=== PATIENT | female | born 1965 | race Two or more races ===

== ENCOUNTER 2020-12-20 00:46 | Inpatient (IN) | payer MEDICAID ==
[2020-12-20] VITALS (11 sets, daily range): BP systolic 93–134; BP diastolic 53–96
[~2020-12-20] VITALS: Ht 165.1 cm; Wt 104.3 kg
--- NOTE | 2020-12-20 01:00 | NUR ---
ED Nurse Note: Patient brought in from assisted living complaints of nosebleed and vomiting blood, bright red blood visualized copius amounts, pt has hx of bilateral cellulitis on lower limbs, increased temperature at 100.9 all other vitals are stable.
--- NOTE | 2020-12-20 01:40 | NUR ---
ED Nurse Note: Blood specimen drawn and sent to lab
[2020-12-20 01:45] LABS: BASOPHILS % (AUTO) 4.3 % (0.0-2.0); EOSINOPHILS % (AUTO) 3.9 % (0.0-3.0); HEMATOCRIT 29.7 % (37.0-47.0); HEMOGLOBIN 8.5 G/DL (12.0-16.0); LYMPHOCYTES % (AUTO) 22.3 % (20.0-45.0); MEAN CORPUSCULAR VOLUME 86 FL (80-99); MONOCYTES % (AUTO) 15.2 % (1.0-10.0); NEUTROPHILS % (AUTO) 54.4 % (45.0-75.0); PLATELET COUNT 408 K/UL (150-450); RED BLOOD COUNT 3.47 M/UL (4.20-5.40); RED CELL DISTRIBUTION WIDTH 22.6 % (11.6-14.8); WHITE BLOOD COUNT 4.9 K/UL (4.8-10.8)
--- NOTE | 2020-12-20 01:46 | Emergency Room Report ---
History of Present Illness General Chief Complaint: Nosebleed Source: EMS Present Illness HPI 55-year-old female here with nosebleed. Patient has a history of DVT and is on Lovenox at a snf. She said that she is in a snf temporarily to treat her cellulitis. Said that earlier tonight she began to experience a severe left-sided nosebleed that "soaked up my whole bed" and then she began vomiting blood. She said that she vomited about a "sodas can worth" of blood. Says that she has been swallowing the blood all night. At this time denies headache, vision changes, focal numbness or weakness, lightheadedness, syncope, presyncope, chest pain, palpitation of shortness of breath, back pain, abdominal pain, nausea, vomiting, diarrhea, dysuria, melena. 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 COVID-19 Screening: Positive COVID-19 COVID-19 Testing Source: unknown Patient History Now: No Nursing Documentation-[facility] Past Medical History: No History, Except For Hx Hypertension: Yes Review of Systems All Other Systems: negative except mentioned in HPI Physical Exam Vital Signs Date Time Temp Pulse Resp B/P (MAP) Pulse Ox O2 Delivery O2 Flow Rate FiO2 12/20/20 00:49 100.9 130 18 93/53 (66) 96 Room Air Sp02 EP Interpretation: reviewed, normal General Appearance: no apparent distress, alert, GCS 15, non-toxic Head: normocephalic, atraumatic Eyes: bilateral eye normal inspection, bilateral eye PERRL ENT: hearing grossly normal, normal pharynx, no angioedema, normal voice, other - Severe active left-sided nosebleed. Large amount of active bleeding from the left naris. Unable to visualize site of bleeding. Blood visible in the posterior oropharynx Neck: full range of motion, supple/symm/no masses Respiratory: chest non-tender, lungs clear, normal breath sounds, speaking full sentences Cardiovascular #1: regular rate, rhythm, no edema Cardiovascular #2: 2+ carotid (R), 2+ carotid (L), 2+ radial (R), 2+ radial (L), 2+ dorsalis pedis (R), 2+ dorsalis pedis (L) Gastrointestinal: normal bowel sounds, non tender, soft, non-distended, no guarding, no rebound Rectal: deferred Genitourinary: normal inspection, no CVA tenderness Musculoskeletal: back normal, normal range of motion, gait/station normal, non- tender Neurologic: alert, motor strength/tone normal, oriented x3, sensory intact, responsive, speech normal Psychiatric: judgement/insight normal, memory normal, mood/affect normal, no suicidal/homicidal ideation Lymphatic: no adenopathy Medical Decision Making Diagnostic Impression: Primary Impression: Severe epistaxis Additional Impressions: Posterior epistaxis Anemia ER Course 55-year-old female here with severe left-sided epistaxis. Large amount of active left-sided bleeding. I was unable to visualize the site of bleeding however there was a large amount of blood in the posterior oropharynx and the patient was actively swallowing blood. Suspected posterior nosebleed. Left naris was packed with a 9 cm posterior rapid Rhino and 5 cc of air was inflated in the posterior and anterior chambers. Patient was observed and the bleeding appears to have subsided. I spoke with the patient's primary care provider who agreed the patient needed to be transferred to a facility that has ENT coverage. Update 0300: I spoke with ENT at [facility] Dr. Martini. We discussed the case and they said that the patient likely will need observation and no need for an ENT consultation at this time. He said transfer for ENT coverage would be inappropriate and refused to accept the patient for transfer. He said the patient would be suitable for outpatient follow-up with ENT, however I told him that the patient had extremely brisk bleeding coming from the left nares and also had a right sided epistaxis as well and this was highly concerning for posterior epistaxis. I told him that the patient had a significant drop in her hemoglobin and has remained tachycardic in the emergency department and will require admission for observation. He said despite this the patient would still be unacceptable for transfer at this time. We discussed this with the accepting physician Dr. Willis who accepted the patient for admission. Patient has remained hemodynamically stable and neurovascular intact in the emergency department. She has remained tachycardic at around 115 bpm. Was given 1 L of IV normal saline. Blood pressure has remained normal and she is awake and alert with no complaints at this time. Awaiting admission to telemetry. Last Vital Signs Date Time Temp Pulse Resp B/P (MAP) Pulse Ox O2 Delivery O2 Flow Rate FiO2 12/20/20 00:49 100.9 130 18 93/53 (66) 96 Room Air Referrals: [facility], [place],REFERRING (PCP) Shaheen Gutierres M.D. Dec 20, 2020 01:46
[2020-12-20 01:48] LABS: ANION GAP 6 mmol/L (5-15); BLOOD UREA NITROGEN 14 mg/dL (7-18); CALCIUM 8.2 MG/DL (8.5-10.1); CARBON DIOXIDE 26 MMOL/L (21-32); CHLORIDE 108 MMOL/L (98-107); CREATININE 0.9 MG/DL (0.55-1.30); POTASSIUM 4.2 MMOL/L (3.5-5.1); SODIUM 140 MMOL/L (136-145)
[2020-12-20 01:53] LABS: ALANINE AMINOTRANSFERASE 7 U/L (12-78); ALBUMIN 1.7 G/DL (3.4-5.0); ALBUMIN/GLOBULIN RATIO 0.4 (1.0-2.7); ALKALINE PHOSPHATASE 73 U/L (46-116); ASPARTATE AMINO TRANSFERASE 20 U/L (15-37); BILIRUBIN,TOTAL 0.2 MG/DL (0.2-1.0)
--- NOTE | 2020-12-20 03:30 | NUR ---
ED Nurse Note: Blood specimen sent to lab
[2020-12-20 03:52] LABS: INR 1.2 (0.9-1.1)
--- NOTE | 2020-12-20 07:30 | NUR ---
patient is awake alert oriented repeat cbc done no bleeding noted
[2020-12-20 08:32] LABS: HEMATOCRIT 27.2 % (37.0-47.0); MEAN CORPUSCULAR VOLUME 85 FL (80-99); PLATELET COUNT 389 K/UL (150-450); RED BLOOD COUNT 3.19 M/UL (4.20-5.40); RED CELL DISTRIBUTION WIDTH 22.1 % (11.6-14.8); WHITE BLOOD COUNT 4.2 K/UL (4.8-10.8)
[2020-12-20] MEDS ORDERED: Omnipaque-300 100ml vial INJ PRN (09:30)
--- NOTE | 2020-12-20 10:56 | Diagnostic Imaging Report ---
EXAM: CT Abdomen and Pelvis With Intravenous Contrast CLINICAL HISTORY: BLD, vomiting blood, bright red blood visualized copious amounts, pt has hx of bilateral cellulitis on lower limbs, increased temperature at 100.9 all TECHNIQUE: Axial computed tomography images of the abdomen and pelvis with intravenous contrast. CTDI is 14.4 mGy and DLP is 768.1 mGy-cm. One or more of the following dose reduction techniques were used: automated exposure control, adjustment of the mA and/or kV according to patient size, use of iterative reconstruction technique. COMPARISON: No relevant prior studies available. FINDINGS: Lung bases: Atelectasis/scarring at the lung bases. No pleural effusion. Heart: Cardiomegaly. ABDOMEN: Liver: Hepatic steatosis. Low-attenuation lesion adjacent to the falciform ligament may represent focal fatty infiltration versus cystic change. Scattered additional hepatic cysts are demonstrated measuring up to 1.5 cm in segment 7. Gallbladder and bile ducts: Hydropic gallbladder measuring up to 5.4 cm. No calcified stones. No ductal dilation. Pancreas: Unremarkable. No mass. No ductal dilation. Spleen: Unremarkable. No splenomegaly. Adrenals: Unremarkable. No mass. Kidneys and ureters: The kidneys symmetrically enhance. No hydronephrosis. Stomach and bowel: The stomach is contracted. No definite CT evidence of upper gastrointestinal hemorrhage. Mild-moderate fecal retention, correlate for constipation. No small bowel obstruction. No diverticulitis. PELVIS: Appendix: Normal appendix is visualized. Bladder: Decompressed urinary bladder. Reproductive: Normal CT appearance of the uterus. ABDOMEN and PELVIS: Intraperitoneal space: Unremarkable. No free air. No significant fluid collection. Bones/joints: Degenerative change of the spine with grade 1 anterolisthesis of L4 on L5. Severe degenerative changes/resorption of the right femoral head. Suspect right hip joint effusion. Correlate with MRI if this is not a known finding. No acute fracture. No dislocation. Soft tissues: Unremarkable. Vasculature: Non-aneurysmal abdominal aorta. Lymph nodes: Bilateral inguinal adenopathy likely secondary to history of lower extremity cellulitis. IMPRESSION: 1. No definite CT evidence of upper gastrointestinal hemorrhage. Contracted stomach and its evaluation. Consider upper GI endoscopy. 2. Hepatic steatosis. Low-attenuation lesion adjacent to the falciform ligament may represent focal fatty infiltration versus cystic change. Scattered additional hepatic cysts are demonstrated measuring up to 1.5 cm in segment 7. Hydropic gallbladder measuring up to 5.4 cm. 3. Mild-moderate fecal retention, correlate for constipation. No small bowel obstruction. No diverticulitis. 4. Severe degenerative changes/resorption of the right femoral head. Suspect right hip joint effusion. Correlate with MRI if this is not a known finding. 5. Bilateral inguinal adenopathy likely secondary to history of lower extremity cellulitis.
--- NOTE | 2020-12-20 11:21 | NUR ---
DR LEW has been called to come anfd evaluate the patient
--- NOTE | 2020-12-20 11:30 | NUR ---
Pt eating at this time. tolerating. pt stable at this time
--- NOTE | 2020-12-20 13:00 | NUR ---
dr peterson at bedside evaluating the patiend orderd repeat cbc
[2020-12-20 13:28] LABS: HEMATOCRIT 24.4 % (37.0-47.0); HEMOGLOBIN 7.1 G/DL (12.0-16.0); MEAN CORPUSCULAR VOLUME 85 FL (80-99); PLATELET COUNT 247 K/UL (150-450); RED BLOOD COUNT 2.87 M/UL (4.20-5.40); RED CELL DISTRIBUTION WIDTH 22.2 % (11.6-14.8); WHITE BLOOD COUNT 2.8 K/UL (4.8-10.8)
--- NOTE | 2020-12-20 13:35 | Consultation ---
History of Present Illness General Date patient seen: Dec 20, 2020 Reason for Hospitalization: Nosebleed Present Illness HPI 55-year-old female multimedical comorbidities currently under care identified to have left epistaxis states she is doing a Lovenox recently. Rhino Rocket placed surgery called to evaluate assist with care patient seen in emergency room patient evaluated chart reviewed. Rhino rocket evaluated and repositioned hemostasis obtained Allergies: Coded Allergies: ERYTHROMYCIN BASE (Verified Allergy, Unknown, 12/20/20) LATEX, NATURAL RUBBER (Verified Allergy, Unknown, 12/20/20) COVID-19 Screening Contact w/high risk pt: Yes Experienced COVID-19 symptoms?: Yes Coronavirus symptoms experienc: Fever (T>100.4F or >38C), Cough Medication History Unable to Obtain Active Prescriptions or Reported Meds Patient History History Provided By: Patient, Medical Record, PMD Healthcare decision maker Resuscitation status Advanced Directive on File Past Medical/Surgical History Past Medical/Surgical History: (1) Anemia (2) Posterior epistaxis (3) Severe epistaxis Review of Systems Review of Symptoms General ROS: no weight loss or fever Psychological ROS: no depression or mood changes, no memory loss Ophthalmic ROS: no visual changes or eye irritation ENT ROS: no nasal congestion, hearing loss, dizziness Allergy and Immunology ROS: no allergic symptoms or urticaria Hematological and Lymphatic ROS: no swollen glands, unusual bleeding or bruising Endocrine ROS: no polyuria, polydipsia, weight changes, temperature intolerance Respiratory ROS: no cough, shortness of breath, or wheezing Cardiovascular ROS: no chest pain or dyspnea on exertion Gastrointestinal ROS: denies abdominal pain, bright red blood in stool. Musculoskeletal ROS: no myalgias or arthralgias Neurological ROS: no TIA or stroke symptoms Dermatological ROS: no new or changing skin lesions, rashes or pruritis Physical Exam Physical Exam General appearance: alert, cooperative, no distress, appears stated age Head: Normocephalic, without obvious abnormality, atraumatic left upper taxis noted Rhino Rocket in place hemostasis obtained Eyes: conjunctivae/corneas clear. PERRL, EOM's intact. Fundi benign Throat: Lips, mucosa, and tongue normal. Teeth and gums normal Neck: supple, symmetrical, trachea midline, no adenopathy, thyroid: not enlarged, symmetric, no tenderness/mass/nodules, no carotid bruit and no JVD Lungs: clear to auscultation bilaterally Heart: regular rate and rhythm, S1, S2 normal, no murmur, click, rub or gallop Abdomen: soft, non-tender. Bowel sounds normal. No masses, no organomegaly Extremities: extremities normal, atraumatic, no cyanosis or edema Pulses: 2+ and symmetric Skin: Skin color, texture, turgor normal. No rashes or lesions Neurologic: Grossly normal Last 24 Hour Vital Signs Date Time Temp Pulse Resp B/P (MAP) Pulse Ox O2 Delivery O2 Flow Rate FiO2 12/20/20 12:30 120 16 107/70 100 Room Air 12/20/20 11:15 130 16 117/64 100 Room Air 12/20/20 10:35 117 15 110/64 100 12/20/20 08:40 116 16 129/96 100 Room Air 12/20/20 07:30 98.0 119 17 134/74 100 Room Air 12/20/20 05:20 99.0 112 20 125/76 100 Room Air 12/20/20 03:54 98.9 110 20 128/77 100 Room Air 12/20/20 01:45 98.9 18 93/53 96 Room Air 12/20/20 00:49 100.9 130 18 93/53 (66) 96 Room Air Intake and Output 12/19/20 12/20/20 19:00 07:00 Intake Total 0 ml Balance 0 ml Intake Oral 0 ml Laboratory Tests Test 12/20/20 01:26 12/20/20 03:30 12/20/20 07:43 12/20/20 13:18 White Blood Count 4.9 K/UL (4.8-10.8) 4.2 K/UL (4.8-10.8) L 2.8 K/UL (4.8-10.8) L Red Blood Count 3.47 M/UL (4.20-5.40) L 3.19 M/UL (4.20-5.40) L 2.87 M/UL (4.20-5.40) L Hemoglobin 8.5 G/DL (12.0-16.0) L 8.0 G/DL (12.0-16.0) L 7.1 G/DL (12.0-16.0) L Hematocrit 29.7 % (37.0-47.0) L 27.2 % (37.0-47.0) L 24.4 % (37.0-47.0) L Mean Corpuscular Volume 86 FL (80-99) 85 FL (80-99) 85 FL (80-99) Mean Corpuscular Hemoglobin 24.6 PG (27.0-31.0) L 25.2 PG (27.0-31.0) L 24.8 PG (27.0-31.0) L Mean Corpuscular Hemoglobin Concent 28.8 G/DL (32.0-36.0) L 29.6 G/DL (32.0-36.0) L 29.2 G/DL (32.0-36.0) L Red Cell Distribution Width 22.6 % (11.6-14.8) H 22.1 % (11.6-14.8) H 22.2 % (11.6-14.8) H Platelet Count 408 K/UL (150-450) 389 K/UL (150-450) 247 K/UL (150-450) Mean Platelet Volume 6.2 FL (6.5-10.1) L 6.1 FL (6.5-10.1) L 6.2 FL (6.5-10.1) L Neutrophils (%) (Auto) 54.4 % (45.0-75.0) % (45.0-75.0) % (45.0-75.0) Lymphocytes (%) (Auto) 22.3 % (20.0-45.0) % (20.0-45.0) % (20.0-45.0) Monocytes (%) (Auto) 15.2 % (1.0-10.0) H % (1.0-10.0) % (1.0-10.0) Eosinophils (%) (Auto) 3.9 % (0.0-3.0) H % (0.0-3.0) % (0.0-3.0) Basophils (%) (Auto) 4.3 % (0.0-2.0) H % (0.0-2.0) % (0.0-2.0) Sodium Level 140 MMOL/L (136-145) Potassium Level 4.2 MMOL/L (3.5-5.1) Chloride Level 108 MMOL/L (98-107) H Carbon Dioxide Level 26 MMOL/L (21-32) Anion Gap 6 mmol/L (5-15) Blood Urea Nitrogen 14 mg/dL (7-18) Creatinine 0.9 MG/DL (0.55-1.30) Estimat Glomerular Filtration Rate > 60 mL/min (>60) Glucose Level 104 MG/DL (74-106) Calcium Level 8.2 MG/DL (8.5-10.1) L Total Bilirubin 0.2 MG/DL (0.2-1.0) Aspartate Amino Transf (AST/SGOT) 20 U/L (15-37) Alanine Aminotransferase (ALT/SGPT) 7 U/L (12-78) L Alkaline Phosphatase 73 U/L (46-116) Total Protein 6.5 G/DL (6.4-8.2) Albumin 1.7 G/DL (3.4-5.0) L Globulin 4.8 g/dL Albumin/Globulin Ratio 0.4 (1.0-2.7) L Prothrombin Time 12.6 SEC (9.30-11.50) H Prothromb Time International Ratio 1.2 (0.9-1.1) H Activated Partial Thromboplast Time 31 SEC (23-33) Differential Total Cells Counted 100 Neutrophils % (Manual) 57 % (45-75) Pending Lymphocytes % (Manual) 22 % (20-45) Pending Monocytes % (Manual) 16 % (1-10) H Eosinophils % (Manual) 3 % (0-3) Basophils % (Manual) 2 % (0-2) Band Neutrophils 0 % (0-8) Platelet Estimate Adequate Pending Platelet Morphology Normal Pending Hypochromasia 1+ Anisocytosis 2+ Schistocytes Occasional Height (Feet): 5 Height (Inches): 5.00 Weight (Pounds): 230 Medications Current Medications Medications (Trade) Dose Ordered Sig/Chon Route PRN Reason Start Time Stop Time Status Last Admin Dose Admin Acetaminophen (Tylenol) 650 mg Q4H PRN ORAL Pain Scale (3-5) 12/20/20 11:30 01/19/21 11:29 Iohexol (OMNIPAQUE-300 100ml) 100 ml NOW PRN INJ Radiology Procedure 12/20/20 09:30 12/22/20 09:29 Assessment/Plan Problem List: (1) Anemia ICD Codes: D64.9 - Anemia, unspecified SNOMED: 736348162 (2) Posterior epistaxis ICD Codes: R04.0 - Epistaxis SNOMED: 116241635 (3) Severe epistaxis Assessment & Plan: 55-year-old female with recent epi taxis. States she is been receiving Lovenox. Identified last night to have severe bleeding from the left nostril. Came in for evaluation. Rhino Rocket initially placed with still some bleeding. Patient was seen at the bedside in the emergency department. Rhino Rocket evaluated pushed and further both balloons insufflated hemostasis obtained patient states no posteriorly leak. No bleeding noted at this time. Admit for further monitoring. Hold anticoagulation. Will follow with recommendations. Thank you for letting participate patient's care ENT eval ICD Codes: R04.0 - Epistaxis SNOMED: 750999247 Candelario Monzon Dec 20, 2020 13:35
--- NOTE | 2020-12-20 14:15 | NUR ---
dr mac at the bedside no complaints at this time no bleeding from nose noted packing still intact
--- NOTE | 2020-12-20 15:06 | NUR ---
Blood transfusion note: 1450- started blood tranfusion at 75ml/hr for 15 min,V/S T 96.7,Hr 119, B/P 106/64, R 18, pt tolerating at this time, no advers reaction noted. Pt stable under her condition. No advers reaction note. At 1505 Increase rate to 125ml/hr pt tolerating at this time, V/s T96.5,Hr 114, B/P 103/66, 20R. pt under observation for any advers reaction
--- NOTE | 2020-12-20 17:05 | History & Physical ---
History of Present Illness General Reason for Hospitalization: Nosebleed Present Illness HPI 55-year-old female here with nosebleed. Patient has a history of DVT and is [facility] at a [facility]. She said that she is in a [facility] temporarily to treat her cellulitis. Said that earlier tonight she began to experience a severe left-sided nosebleed that "soaked up my whole bed" and then she began vomiting blood. She said that she vomited about a "sodas can worth" of blood. Says that she has been swallowing the blood all night. At this time denies headache, vision changes, focal numbness or weakness, lightheadedness, syncope, presyncope, chest pain, palpitation of shortness of breath, back pain, abdominal pain, nausea, vomiting, diarrhea, dysuria, melena. Allergies: Coded Allergies: ERYTHROMYCIN BASE (Verified Allergy, Unknown, 12/20/20) LATEX, NATURAL RUBBER (Verified Allergy, Unknown, 12/20/20) COVID-19 Screening Contact w/high risk pt: Yes Experienced COVID-19 symptoms?: Yes Coronavirus symptoms experienc: Fever (T>100.4F or >38C), Cough Medication History Unable to Obtain Active Prescriptions or Reported Meds Patient History Healthcare decision maker Resuscitation status Advanced Directive on File Review of Systems Review of Symptoms General ROS: no weight loss or fever Psychological ROS: no depression or mood changes, no memory loss Ophthalmic ROS: no visual changes or eye irritation ENT ROS: no nasal congestion, hearing loss, dizziness Allergy and Immunology ROS: no allergic symptoms or urticaria Hematological and Lymphatic ROS: no swollen glands, unusual bleeding or bruising Endocrine ROS: no polyuria, polydipsia, weight changes, temperature intolerance Respiratory ROS: no cough, shortness of breath, or wheezing Cardiovascular ROS: no chest pain or dyspnea on exertion Gastrointestinal ROS: denies abdominal pain, bright red blood in stool. Musculoskeletal ROS: no myalgias or arthralgias Neurological ROS: no TIA or stroke symptoms Dermatological ROS: no new or changing skin lesions, rashes or pruritis Physical Exam Physical Exam General appearance: alert, cooperative, no distress, appears stated age Head: Normocephalic, without obvious abnormality, atraumatic Eyes: conjunctivae/corneas clear. PERRL, EOM's intact. Fundi benign Throat: Lips, mucosa, and tongue normal. Teeth and gums normal Neck: supple, symmetrical, trachea midline, no adenopathy, thyroid: not enlarged, symmetric, no tenderness/mass/nodules, no carotid bruit and no JVD Lungs: clear to auscultation bilaterally Heart: regular rate and rhythm, S1, S2 normal, no murmur, click, rub or gallop Abdomen: soft, non-tender. Bowel sounds normal. No masses, no organomegaly Extremities: extremities normal, atraumatic, no cyanosis or edema Pulses: 2+ and symmetric Skin: Skin color, texture, turgor normal. No rashes or lesions Neurologic: Grossly normal Last 24 Hour Vital Signs Date Time Temp Pulse Resp B/P (MAP) Pulse Ox O2 Delivery O2 Flow Rate FiO2 12/20/20 12:30 120 16 107/70 100 Room Air 12/20/20 11:15 130 16 117/64 100 Room Air 12/20/20 10:35 117 15 110/64 100 12/20/20 08:40 116 16 129/96 100 Room Air 12/20/20 07:30 98.0 119 17 134/74 100 Room Air 12/20/20 05:20 99.0 112 20 125/76 100 Room Air 12/20/20 03:54 98.9 110 20 128/77 100 Room Air 12/20/20 01:45 98.9 18 93/53 96 Room Air 12/20/20 00:49 100.9 130 18 93/53 (66) 96 Room Air Intake and Output 12/19/20 12/20/20 19:00 07:00 Intake Total 0 ml Balance 0 ml Intake Oral 0 ml Laboratory Tests Test 12/20/20 01:26 12/20/20 03:30 12/20/20 07:43 12/20/20 13:18 White Blood Count 4.9 K/UL (4.8-10.8) 4.2 K/UL (4.8-10.8) L 2.8 K/UL (4.8-10.8) L Red Blood Count 3.47 M/UL (4.20-5.40) L 3.19 M/UL (4.20-5.40) L 2.87 M/UL (4.20-5.40) L Hemoglobin 8.5 G/DL (12.0-16.0) L 8.0 G/DL (12.0-16.0) L 7.1 G/DL (12.0-16.0) L Hematocrit 29.7 % (37.0-47.0) L 27.2 % (37.0-47.0) L 24.4 % (37.0-47.0) L Mean Corpuscular Volume 86 FL (80-99) 85 FL (80-99) 85 FL (80-99) Mean Corpuscular Hemoglobin 24.6 PG (27.0-31.0) L 25.2 PG (27.0-31.0) L 24.8 PG (27.0-31.0) L Mean Corpuscular Hemoglobin Concent 28.8 G/DL (32.0-36.0) L 29.6 G/DL (32.0-36.0) L 29.2 G/DL (32.0-36.0) L Red Cell Distribution Width 22.6 % (11.6-14.8) H 22.1 % (11.6-14.8) H 22.2 % (11.6-14.8) H Platelet Count 408 K/UL (150-450) 389 K/UL (150-450) 247 K/UL (150-450) Mean Platelet Volume 6.2 FL (6.5-10.1) L 6.1 FL (6.5-10.1) L 6.2 FL (6.5-10.1) L Neutrophils (%) (Auto) 54.4 % (45.0-75.0) % (45.0-75.0) % (45.0-75.0) Lymphocytes (%) (Auto) 22.3 % (20.0-45.0) % (20.0-45.0) % (20.0-45.0) Monocytes (%) (Auto) 15.2 % (1.0-10.0) H % (1.0-10.0) % (1.0-10.0) Eosinophils (%) (Auto) 3.9 % (0.0-3.0) H % (0.0-3.0) % (0.0-3.0) Basophils (%) (Auto) 4.3 % (0.0-2.0) H % (0.0-2.0) % (0.0-2.0) Sodium Level 140 MMOL/L (136-145) Potassium Level 4.2 MMOL/L (3.5-5.1) Chloride Level 108 MMOL/L (98-107) H Carbon Dioxide Level 26 MMOL/L (21-32) Anion Gap 6 mmol/L (5-15) Blood Urea Nitrogen 14 mg/dL (7-18) Creatinine 0.9 MG/DL (0.55-1.30) Estimat Glomerular Filtration Rate > 60 mL/min (>60) Glucose Level 104 MG/DL (74-106) Calcium Level 8.2 MG/DL (8.5-10.1) L Total Bilirubin 0.2 MG/DL (0.2-1.0) Aspartate Amino Transf (AST/SGOT) 20 U/L (15-37) Alanine Aminotransferase (ALT/SGPT) 7 U/L (12-78) L Alkaline Phosphatase 73 U/L (46-116) Total Protein 6.5 G/DL (6.4-8.2) Albumin 1.7 G/DL (3.4-5.0) L Globulin 4.8 g/dL Albumin/Globulin Ratio 0.4 (1.0-2.7) L Prothrombin Time 12.6 SEC (9.30-11.50) H Prothromb Time International Ratio 1.2 (0.9-1.1) H Activated Partial Thromboplast Time 31 SEC (23-33) Differential Total Cells Counted 100 100 Neutrophils % (Manual) 57 % (45-75) 51 % (45-75) Lymphocytes % (Manual) 22 % (20-45) 18 % (20-45) L Monocytes % (Manual) 16 % (1-10) H 21 % (1-10) H Eosinophils % (Manual) 3 % (0-3) 4 % (0-3) H Basophils % (Manual) 2 % (0-2) 4 % (0-2) H Band Neutrophils 0 % (0-8) 2 % (0-8) Platelet Estimate Adequate Adequate Platelet Morphology Normal Normal Hypochromasia 1+ 1+ Anisocytosis 2+ 2+ Schistocytes Occasional Occasional Height (Feet): 5 Height (Inches): 5.00 Weight (Pounds): 230 Medications Current Medications Medications (Trade) Dose Ordered Sig/Chon Route PRN Reason Start Time Stop Time Status Last Admin Dose Admin Acetaminophen (Tylenol) 650 mg Q4H PRN ORAL Pain Scale (3-5) 12/20/20 11:30 01/19/21 11:29 Iohexol (OMNIPAQUE-300 100ml) 100 ml NOW PRN INJ Radiology Procedure 12/20/20 09:30 12/22/20 09:29 Assessment/Plan Diagnosis Rough And Ready I: #epistaxis #acute anemia #HTN #HLD #DVT on lovenox - hold lovenox - prbc transfusion - monitor hemoglobin - surgery consulted - monitor vitals [facility] Hospital declaration I spent 70 minutes on this patient's case, and 35 minutes was dedicated to counseling and/or care coordination. MIPS ([employer]it-based Incentive Payment System) Applicable CPT: 23517, 68122 CHECK ALL THAT ARE MET: Measure #5 (CHF): All ages. Prescribe JAYLON/ARB upon discharge for patients with left ventricular systolic dysfunction. If not, the reason is clearly documented in the medical chart. Measure #8 (CHF): All ages. Prescribe a beta santi upon discharge for patients with left ventricular systolic dysfunction. If not, the reason is clearly documented in the medical chart. Measure #47 Advance care plan or surrogate decision maker documented in the medical record. Measure #130 The provider has documented, updated, or reviewed the patients current medication list and has documented it in the patients note. Measure #374 (All): Send report to referring provider. Measure #407(Sepsis due to MSSA bacteremia): Age 18+ Patient treated with a beta-lactam antibiotic (Nafcillin, Oxacillin or Cefazolin) as definitive therapy. MEDICAL COMPLEXITY High complexity medical decision making (need 2/3 categories) Problem - need 4 points Acute/new problem with new plan for workup (4 points, 1 max) Acute/new problem without additional workup (3 points, 1 max) Unstable chronic problem actively being managed (2 point each, 2 max) Stable chronic problem actively being managed (1 point each, 2 max) Self-limited/transient process (constipation, muscle ache, etc) (1 point each, 2 max) Data - need 4 points Reviewed labs/imaging studies (1 points, 2 max) Independent review of imaging (EKG, xrays, etc) (2 points, 2 max) Discussed case with consult/other MD/RN (2 points, 2 max) High Risk - qualify if have one of the following: Severe exacerbation of acute problem, acute mental status change, IV narcotics, monitoring drug levels (vancomycin, INR, tacrolimus etc) Aaron Willis M.D. Dec 20, 2020 17:05
--- NOTE | 2020-12-20 17:35 | NUR ---
Blood transfusion note: Pt finish first PRBCs with no reaction at this time, V/S 99.3,116,110/63. See blood tranfusion sheet. Second PRBCs started at 75ml/hr for 15 min to obser for any reaction.
--- NOTE | 2020-12-20 19:45 | NUR ---
NURSE NOTES: Receive a report from Bia ZHANG RN.
--- NOTE | 2020-12-20 19:55 | NUR ---
ED Nurse Note: report given to RN Meagan
--- NOTE | 2020-12-20 20:15 | NUR ---
NURSE NOTES: Pt admitted from ED, via hospital bed. Awake and alert. No active bleeding noted on left nose and intact packing. No respiratory distress noted. No N/V noted. Noted L/E cellulitis with dressing and right side dressing wet with discharge. Will change dressing. Pain is tolerating at this time. PICC on YOSVANY intact running wit 2-2 P-RBC. No adverse reactions. Given unit orientation. Call light within reach. Will continue to monitor.
--- NOTE | 2020-12-20 20:20 | NUR ---
NURSE NOTES: Finished 2-2 P-RBC transfusion without adverse reactions. Will continue to monitor.
--- NOTE | 2020-12-20 21:00 | NUR ---
NURSE NOTES: Call Dr. Lozano for admission orders including 2 P-RBC transfusion. Receive orders. Read back. Order noted and carried out. Will continue to monitor.
[2020-12-20] MEDS ORDERED: HYDROmorphone 2mg tab ORAL PRN (21:15)
[2020-12-20] MEDS ORDERED: Dyna-Hex 2% Top Sol 2oz TOPIC SCH (21:30)
--- NOTE | 2020-12-20 22:30 | NUR ---
NURSE NOTES: Pt is awake and alert. Given pain medication prior to change dressing on bilateral L/E cellulitis. PICC on YOSVANY site intact. Change dressing. Noted a pea size scab next to PICC insertion site. Noted one of PICC lumen is occluded but other is patent with mild resistance. IV on left AC intact. Noted yellow discharge with blood on bilateral dressing. Done change with wet gauze and applying oil emulsion gauze, 4x4, ABD and wrapping with Karlex. Will continue to monitor.
[2020-12-20] MEDS: HYDROmorphone 2mg tab ORAL PRN (22:32)
[2020-12-21] VITALS: BP 110/70
--- NOTE | 2020-12-21 00:10 | NUR ---
NURSE NOTES: P-RBC transfusion start after co-sign with two RNs. Provide S/E of transfusions. VSS are checked, [id number]. Will continue to monitor.
[2020-12-21] MEDS ORDERED: Potassium Chloride 10 MEQ in D5 1/2NS 1,000 ML IV SCH (01:30)
--- NOTE | 2020-12-21 01:30 | NUR ---
NURSE NOTES: Pt had moderate amount of solid BM with blood in it. No dizziness noted. On transfusion. Notify Dr. Willis for hematochezia. Receive new order of NPO and fluid order after transfusion is done, including Benadryl for itching. Order noted and carried out. Will continue to monitor.
--- NOTE | 2020-12-21 03:00 | NUR ---
NURSE NOTES: P-RBC transfusion is done. VSS are stable but noted mild itching sense. Will provide prn medication-Benadryl 25mg 1c po. Will continue to monitor.
[2020-12-21] MEDS: D5 1/2NS 1,000 ML IV SCH ×2 (03:30→19:50)
--- NOTE | 2020-12-21 03:30 | NUR ---
NURSE NOTES: 4-(3) P-RBC is not ready in blood bank. CBC is scheduled in the morning. Requested to see CBC lab result before to get transfused. Will notify MD for the situation. Will continue to monitor.
[2020-12-21 04:00] VITALS: BP 113/74
[2020-12-21 05:07] LABS: HEMATOCRIT 33.7 % (37.0-47.0); HEMOGLOBIN 10.4 G/DL (12.0-16.0); MEAN CORPUSCULAR VOLUME 85 FL (80-99); PLATELET COUNT 328 K/UL (150-450); RED BLOOD COUNT 3.99 M/UL (4.20-5.40); RED CELL DISTRIBUTION WIDTH 19.6 % (11.6-14.8); WHITE BLOOD COUNT 3.7 K/UL (4.8-10.8)
--- NOTE | 2020-12-21 06:30 | NUR ---
NURSE NOTES: Notify Dr. Willis for CBC lab result and not getting 4th P-RBC yet. Will follow up CBC one more time. Will continue to monitor.
--- NOTE | 2020-12-21 07:30 | NUR ---
NURSE HAND-OFF REPORT: Important Events on Shift: new admission/ Transfusion/ Dressing change on bilateral L/E/ Patient Status: [stable] Diet: [npo] Pending Orders: [occlusion of one of lumens] Pending Results/Labs:[CBC] Pending MD notification:[] Latest Vital Signs: Temperature 99.8 , Pulse 96 , B/P 113 /74 , Respiratory Rate 20 , O2 SAT 97 , Room Air, O2 Flow Rate . Vital Sign Comment: [] EKG Rhythm: Sinus Rhythm Rhythm change?: N MD Notified?: - MD Response: Latest Danielle Fall Score: 45 Fall Risk: High Risk Safety Measures: Call light Within Reach, Bed Alarm , Side Rails Side Rails x2, Bed position Low and Locked. Fall Precautions: Patient Fall Education Report given to EMMIE Barrett. Round is made.
[2020-12-21 08:00] VITALS: BP 111/72
[2020-12-21 08:04] LABS: HEMATOCRIT 34.1 % (37.0-47.0); HEMOGLOBIN 10.6 G/DL (12.0-16.0); MEAN CORPUSCULAR VOLUME 85 FL (80-99); PLATELET COUNT 339 K/UL (150-450); RED BLOOD COUNT 4.01 M/UL (4.20-5.40); RED CELL DISTRIBUTION WIDTH 19.7 % (11.6-14.8); WHITE BLOOD COUNT 3.7 K/UL (4.8-10.8)
--- NOTE | 2020-12-21 08:13 | NUR ---
NURSE NOTES: pt is in bed, awake and alert. currently on cardiac technologist and RA showing no signs of respiratory distress. Bilateral lower extremity wound dressing is clean and dry. pt has R UA picc line that is sluggish. will follow up with Dr. Willis for new orders. L AC 22g is patent. bed is locked and in lowest position, call light is within reach.
--- NOTE | 2020-12-21 10:45 | NUR ---
NURSE NOTES: spoke with Dr. Monzon and allowed pt to start on clear liquid diet. notified MD about bilateral lower leg cellulitis. consult with Wound RN recommended.
--- NOTE | 2020-12-21 10:52 | Surgery Progress Note ---
Surgery Progress Note Subjective Additional Comments Patient seen and examined bedside. States she feels better. No acute events overnight. No nausea vomiting fever chills. No active bleeding. Responded to blood transfusions. Nasal packing in place. Objective Last 24 Hour Vital Signs Date Time Temp Pulse Resp B/P (MAP) Pulse Ox O2 Delivery O2 Flow Rate FiO2 12/21/20 04:30 99.8 12/21/20 04:00 96 12/21/20 04:00 100.6 107 20 113/74 (87) 97 12/21/20 00:00 97.7 103 20 110/70 (83) 98 12/21/20 00:00 100 12/20/20 21:00 Room Air 12/20/20 20:41 Room Air 12/20/20 20:20 98.6 111 20 106/67 (80) 98 12/20/20 19:56 98.8 12/20/20 17:35 99.3 116 16 110/63 98 Room Air 12/20/20 14:50 96.7 119 16 107/64 96 Room Air 12/20/20 12:30 120 16 107/70 100 Room Air 12/20/20 11:15 130 16 117/64 100 Room Air I&O Intake and Output 12/20/20 12/21/20 19:00 07:00 Intake Total 320 ml 200 ml Balance 320 ml 200 ml Intake Oral 200 ml Blood Product 320 ml # Voids 4 # Bowel Movements 2 Dressing: saturated Wound: clean Cardiovascular: RSR Respiratory: clear Abdomen: soft, non-tender, present bowel sounds, non-distended Extremities: no edema, no tenderness, no cyanosis Laboratory Tests Test 12/20/20 13:18 12/21/20 05:01 12/21/20 07:58 White Blood Count 2.8 K/UL (4.8-10.8) L 3.7 K/UL (4.8-10.8) L 3.7 K/UL (4.8-10.8) L Red Blood Count 2.87 M/UL (4.20-5.40) L 3.99 M/UL (4.20-5.40) L 4.01 M/UL (4.20-5.40) L Hemoglobin 7.1 G/DL (12.0-16.0) L 10.4 G/DL (12.0-16.0) #L 10.6 G/DL (12.0-16.0) L Hematocrit 24.4 % (37.0-47.0) L 33.7 % (37.0-47.0) #L 34.1 % (37.0-47.0) L Mean Corpuscular Volume 85 FL (80-99) 85 FL (80-99) 85 FL (80-99) Mean Corpuscular Hemoglobin 24.8 PG (27.0-31.0) L 26.2 PG (27.0-31.0) L 26.5 PG (27.0-31.0) L Mean Corpuscular Hemoglobin Concent 29.2 G/DL (32.0-36.0) L 31.0 G/DL (32.0-36.0) L 31.1 G/DL (32.0-36.0) L Red Cell Distribution Width 22.2 % (11.6-14.8) H 19.6 % (11.6-14.8) H 19.7 % (11.6-14.8) H Platelet Count 247 K/UL (150-450) 328 K/UL (150-450) 339 K/UL (150-450) Mean Platelet Volume 6.2 FL (6.5-10.1) L 6.2 FL (6.5-10.1) L 6.2 FL (6.5-10.1) L Neutrophils (%) (Auto) % (45.0-75.0) % (45.0-75.0) % (45.0-75.0) Lymphocytes (%) (Auto) % (20.0-45.0) % (20.0-45.0) % (20.0-45.0) Monocytes (%) (Auto) % (1.0-10.0) % (1.0-10.0) % (1.0-10.0) Eosinophils (%) (Auto) % (0.0-3.0) % (0.0-3.0) % (0.0-3.0) Basophils (%) (Auto) % (0.0-2.0) % (0.0-2.0) % (0.0-2.0) Differential Total Cells Counted 100 100 Neutrophils % (Manual) 51 % (45-75) 49 % (45-75) Lymphocytes % (Manual) 18 % (20-45) L 19 % (20-45) L Monocytes % (Manual) 21 % (1-10) H 22 % (1-10) H Eosinophils % (Manual) 4 % (0-3) H 10 % (0-3) H Basophils % (Manual) 4 % (0-2) H 0 % (0-2) Band Neutrophils 2 % (0-8) 0 % (0-8) Platelet Estimate Adequate Adequate Platelet Morphology Normal Normal Hypochromasia 1+ 1+ Anisocytosis 2+ 2+ Schistocytes Occasional Occasional Plan Problems: (1) Anemia (2) Posterior epistaxis (3) Severe epistaxis Assessment & Plan: 55-year-old female with recent epi taxis. States she is been receiving Lovenox. Identified last night to have severe bleeding from the left nostril. Came in for evaluation. Rhino Rocket initially placed with still some bleeding. Patient was seen at the bedside in the emergency department. Rhino Rocket evaluated pushed and further both balloons insufflated hemostasis obtained patient states no posteriorly leak. No bleeding noted at this time. Admit for further monitoring. Hold anticoagulation. Will follow with recomme ndations. Thank you for letting participate patient's care ENT eval No acute events currently not bleeding anymore hemostasis obtained seemingly. Labs stable respond to transfusions. Given patient's history medications and condition will hold on removal of nasal packing for at least the next 24 hours to continuously monitor. Trend labs. Will follow with recommendations thank you Candelario Monzon Dec 21, 2020 10:52
[2020-12-21] MEDS: HYDROmorphone 2mg tab ORAL PRN (11:41)
[2020-12-21 12:00] VITALS: BP 117/76
--- NOTE | 2020-12-21 12:58 | NUR ---
NURSE NOTES:WOUND CARE NOTES:Pt presented on admission with Ulcerations bilat lower extremities.Edema, Haemosiderin stain with Xerotic skin noted to bilat lower extremities and both feet. Large Superficial wound with irregular borders the entire circumference of distal Lower extremity and malleoli. Tortuous wound bed that is joanna with scattered Biofilm. Small amt serous exudate with mild odor noted. Firm, brown borders noted. Two necrotic ulcers lateral R foot.(#1) Necrotic ulcer medial/lateral R Foot (L)1.9cm x (W)2.4cm. Base of wound is necrotic with semidetached borders. Periwound is fluctuant and pink. (#2)Necrotic ulcer lateral R Heel(L)1.5cm x (W)1.7cm. Base of wound is 100% necrotic and adherent to base of wound. Periwound is boggy, pink and blanchable. Large Superficial wound with irregular Borders entire circumference of Distal L lower extremity and malleoli Tortuous wound bed that is joanna with Scattered Biofilm. Small amt serosanguineous exudate noted. Mild odor noted. Firm brown edges noted. Loose non-Viable tissue removed from L Heel. Base of heel is boggy but pink.. NO other skin concerns noted. Pt has been educated on predisposing risks factors to developing Leg ulcers , and on preventing leg ulcers. Educated on proper skin care to minimize further ulcerations. Tx.Plan: Wash and moisturize both lower extremities Prior to wound care. Drsg Instructions: #1-Cleanse R Leg Ulcer with Saline. #2-Apply Adaptic gauze to cover entire wound. #3-Apply Maxsorb AG(Silver Alginate to wound. #4-Cover with ABD Pads. #5- Wrap with Kerlix from Base of Toes to below knee Daily and prn. Apply Betadine to necrotic ulcers Lateral R Foot. Apply Cavilon Skin Barrier to both Heels daily. Elevate both lower extremities with Pillows.
--- NOTE | 2020-12-21 13:00 | NUR ---
NURSE NOTES: wound changed completed with stained glass painter. bilateral lower leg dressing changed.
--- NOTE | 2020-12-21 14:31 | Internal Med Progress Note ---
Subjective Physician Name Aaron Willis Attending Physician Aaron Willis M.D. Current Medications Medications (Trade) Dose Ordered Sig/Chon Route PRN Reason Start Time Stop Time Status Last Admin Dose Admin Acetaminophen (Tylenol) 650 mg Q4H PRN ORAL Pain Scale (3-5) 12/20/20 11:30 01/19/21 11:29 12/20/20 17:41 Chlorhexidine Gluconate (Cyndi-Hex 2%) 1 applic DAILY@2000 TOPIC 12/21/20 20:00 03/21/21 19:59 Dextrose/Sodium Chloride 1,000 ml @ 75 mls/hr [id number] IV 12/21/20 06:00 01/20/21 05:59 12/21/20 03:30 Diphenhydramine HCl (Benadryl) 25 mg Q6H PRN ORAL Itching 12/21/20 01:30 01/20/21 01:29 12/21/20 03:26 Hydromorphone HCl (Dilaudid) 2 mg Q8H PRN ORAL pain prior to dressing change 12/20/20 21:15 12/27/20 21:14 12/21/20 11:41 Iohexol (OMNIPAQUE-300 100ml) 100 ml NOW PRN INJ Radiology Procedure 12/20/20 09:30 12/22/20 09:29 Ondansetron HCl (Zofran) 4 mg Q4H PRN IVP Nausea & Vomiting 12/20/20 21:15 01/19/21 21:14 Allergies: Coded Allergies: ERYTHROMYCIN BASE (Verified Allergy, Unknown, 12/20/20) LATEX, NATURAL RUBBER (Verified Allergy, Unknown, 12/20/20) ROS Limited/Unobtainable: No Constitutional: Reports: weakness HEENT: Denies: no symptoms, eye pain, blurred vision, tearing, double vision, ear pain, ear discharge, nose pain, nose congestion, throat pain, throat swelling, mouth pain, mouth swelling, other Cardiovascular: Denies: no symptoms, chest pain, edema, irregular heart rate, lightheadedness, palpitations, syncope, other Respiratory: Denies: no symptoms, cough, orthopnea, shortness of breath, SOB with excertion, SOB at rest, sputum, stridor, wheezing, other Genitourinary: Denies: no symptoms, burning, discharge, frequency, flank pain, hematuria, incontinence, pain, urgency, other Neurologic/Psychiatric: Denies: no symptoms, anxiety, depressed, emotional problems, headache, numbness, paresthesia, pre-existing deficit, seizure, tingling, tremors, weakness, other Objective Last Vital Signs Date Time Temp Pulse Resp B/P (MAP) Pulse Ox O2 Delivery O2 Flow Rate FiO2 12/21/20 04:30 99.8 12/21/20 04:00 96 12/21/20 04:00 20 113/74 (87) 97 12/20/20 21:00 Room Air General Appearance: no apparent distress, alert EENT: PERRL/EOMI, normal ENT inspection Neck: non-tender, normal alignment Cardiovascular: normal peripheral pulses, normal rate, regular rhythm Respiratory/Chest: chest wall non-tender, lungs clear Abdomen: normal bowel sounds, non tender Extremities: normal range of motion Laboratory Tests Test 12/21/20 05:01 12/21/20 07:58 White Blood Count 3.7 K/UL (4.8-10.8) L 3.7 K/UL (4.8-10.8) L Red Blood Count 3.99 M/UL (4.20-5.40) L 4.01 M/UL (4.20-5.40) L Hemoglobin 10.4 G/DL (12.0-16.0) #L 10.6 G/DL (12.0-16.0) L Hematocrit 33.7 % (37.0-47.0) #L 34.1 % (37.0-47.0) L Mean Corpuscular Volume 85 FL (80-99) 85 FL (80-99) Mean Corpuscular Hemoglobin 26.2 PG (27.0-31.0) L 26.5 PG (27.0-31.0) L Mean Corpuscular Hemoglobin Concent 31.0 G/DL (32.0-36.0) L 31.1 G/DL (32.0-36.0) L Red Cell Distribution Width 19.6 % (11.6-14.8) H 19.7 % (11.6-14.8) H Platelet Count 328 K/UL (150-450) 339 K/UL (150-450) Mean Platelet Volume 6.2 FL (6.5-10.1) L 6.2 FL (6.5-10.1) L Neutrophils (%) (Auto) % (45.0-75.0) % (45.0-75.0) Lymphocytes (%) (Auto) % (20.0-45.0) % (20.0-45.0) Monocytes (%) (Auto) % (1.0-10.0) % (1.0-10.0) Eosinophils (%) (Auto) % (0.0-3.0) % (0.0-3.0) Basophils (%) (Auto) % (0.0-2.0) % (0.0-2.0) Differential Total Cells Counted 100 Neutrophils % (Manual) 49 % (45-75) Lymphocytes % (Manual) 19 % (20-45) L Monocytes % (Manual) 22 % (1-10) H Eosinophils % (Manual) 10 % (0-3) H Basophils % (Manual) 0 % (0-2) Band Neutrophils 0 % (0-8) Platelet Estimate Adequate Platelet Morphology Normal Hypochromasia 1+ Anisocytosis 2+ Schistocytes Occasional Microbiology Date/Time Source Procedure Growth Status 12/21/20 03:00 Rectum Received Intake and Output 12/20/20 12/21/20 19:00 07:00 Intake Total 320 ml 200 ml Balance 320 ml 200 ml Intake Oral 200 ml Blood Product 320 ml # Voids 4 # Bowel Movements 2 Assessment/Plan Assessment/Plan #epistaxis #acute anemia #HTN #HLD #DVT on lovenox - hold lovenox - prbc transfusion - monitor hemoglobin - surgery consulted - monitor vitals Aaron Willis M.D. Dec 21, 2020 14:31
[2020-12-21 16:00] VITALS: BP 117/77
--- NOTE | 2020-12-21 19:06 | NUR ---
NURSE NOTES: Received report from Arnold Pt is A/O x4 and verbally responsive. No pain noted. Pt shows no SOB or acute distress. No active bleeding noted on left nose and intact packing. Pt wound care done on bilateral extremities with nnps earlier in the day dressing still intact and dry. Will change dressing if needed. Pt has a PICC on YOSVANY intact running D5 1/2 NS. Bed in lowest position and locked with side rails x2. Call light placed within reach. Will continue plan of care.
--- NOTE | 2020-12-21 19:43 | NUR ---
NURSE HAND-OFF REPORT: Important Events on Shift:[] hgb increased, 4 PRBC held per MD orders. Patient Status: [] full code Diet: []clear liquid diet Pending Orders: [] Pending Results/Labs:[] Hgb Pending MD notification:[] Latest Vital Signs: Temperature 97.9 , Pulse 109 , B/P 117 /77 , Respiratory Rate 20 , O2 SAT 97 , Room Air, O2 Flow Rate . Vital Sign Comment: [] EKG Rhythm: Sinus Tachycardia Rhythm change?: N MD Notified?: - MD Response: Latest Danielle Fall Score: 45 Fall Risk: High Risk Safety Measures: Call light Within Reach, Bed Alarm , Side Rails Side Rails x2, Bed position Low and Locked. Fall Precautions: Patient Fall Education Report given to [] Erinn OLEA .
[2020-12-21 20:00] VITALS: BP 117/79
[2020-12-21] MEDS: Dyna-Hex 2% Top Sol 2oz TOPIC SCH (20:48)
[2020-12-21] MEDS: Piperacillin/Tazobactam 3.375 GM in NS 110 ML IVPB SCH (22:37)
[2020-12-22] VITALS: BP 119/78
[2020-12-22 04:00] VITALS: BP 120/81
[2020-12-22] MEDS: Piperacillin/Tazobactam 3.375 GM in NS 110 ML IVPB SCH (05:17)
--- NOTE | 2020-12-22 07:00 | NUR ---
NURSE NOTES: Received report from EMMIE Plasencia. Patient observed to be awake, alert, and oriented x4. Seen lying in bed with HOB slightly elevated, currently on clear liquid diet. Patient on contact and droplet precaution for (+) covid. Patient with LAC gauge 22 and YOSVANY picc line running D51/2NS @ [address] intact and dry. Bed placed on lowest and locked, call light placed within reach and will continue to monitor for any changes in patient's condition.
--- NOTE | 2020-12-22 07:12 | NUR ---
NURSE HAND-OFF REPORT: Important Events on Shift: Pt had episode of epistasis Patient Status: Stable Diet: Regular Pending Orders: Pending Results/Labs: Pending MD notification: Latest Vital Signs: Temperature 99.1 , Pulse 101 , B/P 106 /72 , Respiratory Rate 20 , O2 SAT 98 , Room Air, O2 Flow Rate . Vital Sign Comment: EKG Rhythm: Sinus Tachycardia Rhythm change?: N MD Notified?: - MD Response: Latest Danielle Fall Score: 45 Fall Risk: High Risk Safety Measures: Call light Within Reach, Bed Alarm , Side Rails Side Rails x2, Bed position Low and Locked. Fall Precautions: Patient Fall Education Report given to Ami.
[2020-12-22 07:51] LABS: HEMATOCRIT 35.1 % (37.0-47.0); HEMOGLOBIN 10.8 G/DL (12.0-16.0); MEAN CORPUSCULAR VOLUME 87 FL (80-99); PLATELET COUNT 329 K/UL (150-450); RED BLOOD COUNT 4.04 M/UL (4.20-5.40); WHITE BLOOD COUNT 4.1 K/UL (4.8-10.8)
[2020-12-22 08:00] VITALS: BP 105/68
[2020-12-22 08:10] LABS: ALANINE AMINOTRANSFERASE 9 U/L (12-78); ALBUMIN 1.7 G/DL (3.4-5.0); ALBUMIN/GLOBULIN RATIO 0.4 (1.0-2.7); ALKALINE PHOSPHATASE 64 U/L (46-116); ANION GAP 8 mmol/L (5-15); ASPARTATE AMINO TRANSFERASE 23 U/L (15-37); BILIRUBIN,TOTAL 0.3 MG/DL (0.2-1.0); BLOOD UREA NITROGEN 7 mg/dL (7-18); CALCIUM 8.9 MG/DL (8.5-10.1); CARBON DIOXIDE 24 MMOL/L (21-32); CHLORIDE 109 MMOL/L (98-107); CREATININE 0.7 MG/DL (0.55-1.30); POTASSIUM 3.5 MMOL/L (3.5-5.1); SODIUM 141 MMOL/L (136-145)
[2020-12-22] MEDS: D5 1/2NS 1,000 ML IV SCH ×2 (08:25→21:17)
--- NOTE | 2020-12-22 09:56 | Internal Med Progress Note ---
Subjective Physician Name Aaron Willis Attending Physician Aaron Willis M.D. Current Medications Medications (Trade) Dose Ordered Sig/Chon Route PRN Reason Start Time Stop Time Status Last Admin Dose Admin Acetaminophen (Tylenol) 650 mg Q4H PRN ORAL Pain Scale (3-5) 12/20/20 11:30 01/19/21 11:29 12/21/20 22:37 Chlorhexidine Gluconate (Cyndi-Hex 2%) 1 applic DAILY@2000 TOPIC 12/21/20 20:00 03/21/21 19:59 12/21/20 20:48 Dextrose/Sodium Chloride 1,000 ml @ 75 mls/hr [id number] IV 12/21/20 06:00 01/20/21 05:59 12/22/20 08:25 Diphenhydramine HCl (Benadryl) 25 mg Q6H PRN ORAL Itching 12/21/20 01:30 01/20/21 01:29 12/21/20 03:26 Hydromorphone HCl (Dilaudid) 2 mg Q8H PRN ORAL pain prior to dressing change 12/20/20 21:15 12/27/20 21:14 12/21/20 11:41 Ondansetron HCl (Zofran) 4 mg Q4H PRN IVP Nausea & Vomiting 12/20/20 21:15 01/19/21 21:14 Piperacillin Sod/ Tazobactam Sod 3.375 gm/Sodium Chloride 110 ml @ 27.5 mls/hr EVERY 8 HOURS IVPB 12/21/20 22:00 12/26/20 21:59 12/22/20 05:17 Allergies: Coded Allergies: ERYTHROMYCIN BASE (Verified Allergy, Unknown, 12/20/20) LATEX, NATURAL RUBBER (Verified Allergy, Unknown, 12/20/20) All Systems: reviewed and negative except above Subjective hemoglobin stable some bleeding last night Objective Last Vital Signs Date Time Temp Pulse Resp B/P (MAP) Pulse Ox O2 Delivery O2 Flow Rate FiO2 12/22/20 09:00 Room Air 12/22/20 08:00 99.2 115 20 105/68 (80) 97 General Appearance: no apparent distress, alert EENT: PERRL/EOMI Neck: non-tender, normal alignment Cardiovascular: normal peripheral pulses, normal rate, regular rhythm Respiratory/Chest: chest wall non-tender, lungs clear Abdomen: normal bowel sounds, non tender, soft Neurologic: alert, oriented x 3 Laboratory Tests Test 12/22/20 06:40 White Blood Count 4.1 K/UL (4.8-10.8) L Red Blood Count 4.04 M/UL (4.20-5.40) L Hemoglobin 10.8 G/DL (12.0-16.0) L Hematocrit 35.1 % (37.0-47.0) L Mean Corpuscular Volume 87 FL (80-99) Mean Corpuscular Hemoglobin 26.7 PG (27.0-31.0) L Mean Corpuscular Hemoglobin Concent 30.7 G/DL (32.0-36.0) L Red Cell Distribution Width 20.0 % (11.6-14.8) H Platelet Count 329 K/UL (150-450) Mean Platelet Volume 6.4 FL (6.5-10.1) L Neutrophils (%) (Auto) % (45.0-75.0) Lymphocytes (%) (Auto) % (20.0-45.0) Monocytes (%) (Auto) % (1.0-10.0) Eosinophils (%) (Auto) % (0.0-3.0) Basophils (%) (Auto) % (0.0-2.0) Neutrophils % (Manual) Pending Lymphocytes % (Manual) Pending Platelet Estimate Pending Platelet Morphology Pending Prothrombin Time 11.4 SEC (9.30-11.50) Prothromb Time International Ratio 1.0 (0.9-1.1) Activated Partial Thromboplast Time 29 SEC (23-33) Sodium Level 141 MMOL/L (136-145) Potassium Level 3.5 MMOL/L (3.5-5.1) Chloride Level 109 MMOL/L (98-107) H Carbon Dioxide Level 24 MMOL/L (21-32) Anion Gap 8 mmol/L (5-15) Blood Urea Nitrogen 7 mg/dL (7-18) Creatinine 0.7 MG/DL (0.55-1.30) Estimat Glomerular Filtration Rate > 60 mL/min (>60) Glucose Level 72 MG/DL (74-106) L Calcium Level 8.9 MG/DL (8.5-10.1) Phosphorus Level 3.0 MG/DL (2.5-4.9) Magnesium Level 1.7 MG/DL (1.8-2.4) L Total Bilirubin 0.3 MG/DL (0.2-1.0) Aspartate Amino Transf (AST/SGOT) 23 U/L (15-37) Alanine Aminotransferase (ALT/SGPT) 9 U/L (12-78) L Alkaline Phosphatase 64 U/L (46-116) Total Protein 6.1 G/DL (6.4-8.2) L Albumin 1.7 G/DL (3.4-5.0) L Globulin 4.4 g/dL Albumin/Globulin Ratio 0.4 (1.0-2.7) L Microbiology Date/Time Source Procedure Growth Status 12/21/20 03:00 Rectum Received Intake and Output 12/21/20 12/22/20 19:00 07:00 Intake Total 1000 ml 1510 ml Balance 1000 ml 1510 ml Intake Oral 1000 ml 960 ml IV Total 550 ml # Voids 4 4 Assessment/Plan Assessment/Plan #epistaxis #acute anemia #HTN #HLD #DVT on lovenox - hold lovenox - prbc transfusion - monitor hemoglobin - surgery consulted - monitor vitals Aaron Willis M.D. Dec 22, 2020 09:56
[2020-12-22 12:00] VITALS: BP 105/68
--- NOTE | 2020-12-22 12:13 | NUR ---
*-*DISCHARGE PLANNING*-* PATIENT HAS BEEN ACCEPTED BACK TO: [facility] P: [phone] FOR NURSE TO NURSE REPORT ROOM# 11.B ~~~~S/W NURSE OLGA, STATED WANTS TO HOLD DISCHARGE FOR TOMORROW 12/23/20.
[2020-12-22] MEDS: HYDROmorphone 2mg tab ORAL PRN (14:14)
--- NOTE | 2020-12-22 15:14 | Consultation ---
DATE OF CONSULTATION: 12/22/2020 INFECTIOUS DISEASE CONSULTATION CONSULTING PHYSICIAN: Sterling Montiel MD PRIMARY ATTENDING PHYSICIAN: Aaron Willis MD REASON FOR CONSULTATION: Sepsis, nasal bleeding, and sunisitis. HISTORY OF PRESENT ILLNESS: A 55-year-old female admitted on 20 of December from senior care complaining of nasal bleeding. The patient had fever of 100.9 and tachycardia at the time of admission. She had history of recent admission to [facility], [place] with COVID-19, had acute renal failure on that admission, DVT of left leg and was on Lovenox. After admission, she had left nostril packaging and blood transfusion. PAST MEDICAL HISTORY: Hypertension, obesity, hospitalization with COVID-19 on December 05, left lower extremity DVT, venous stasis, Staph aureus bacteremia, was supposed to receive IV cefazolin until yesterday, methamphetamine abuse. ALLERGIES: Allergic to erythromycin, latex, and natural rubber. SOCIAL HISTORY: Single, smoking one cigarette a day. Denies drinking and drug abuse. Currently in senior care. PHYSICAL EXAMINATION: VITAL SIGNS: Temperature 99.2, pulse 117, blood pressure is 105/68. GENERAL APPEARANCE: Seems to be obese. HEAD AND NECK: Left nostril is packed. Currently, there is no active bleeding. HEART: Normal rate. LUNGS: Clear. ABDOMEN: Soft and nontender. EXTREMITIES: Stasis dermatitis of both legs. NEUROLOGIC: Awake, alert, oriented x3. LABORATORY AND DIAGNOSTIC DATA: WBC 4.1, hemoglobin 10.8, hematocrit 35.1, platelets 329. Sodium 141, potassium 3.5, chloride 109, bicarb 24, BUN 7, creatinine 0.7, glucose 72. Albumin was very low 1.7. The patient had CT scan of the abdomen and pelvis, which showed hepatic steatosis, severe degenerative changes of right femoral head, suspect right hip joint effusion, bilateral inguinal adenopathy, likely secondary to history of lower extremity cellulitis. IMPRESSION: Fever and tachycardia, likely sepsis or systemic inflammatory symptoms, has nasal bleeding. The patient may have sinusitis that she has history of sinusitis, has severe anemia status post transfusion, has morbid obesity, hepatic steatosis, Staph aureus bacteremia treated. RECOMMENDATION: Change Zosyn to Augmentin. We will check urine toxicology because of the history of methamphetamine abuse. At the end of my exam, I thank Dr. Willis for involving me in the care of this patient. Sterling Montiel M.D. DR: Delfino JOB#: [id number] CC: BASILIA
[2020-12-22 16:00] VITALS: BP 106/72
--- NOTE | 2020-12-22 16:27 | NUR ---
INSURANCE CLINICALS FAXED TO [facility] #[phone] fax# [phone]
[2020-12-22] MEDS ORDERED: D5 1/2NS 1000ml IV ONE (16:48)
[2020-12-22] MEDS ORDERED: Tubing IV Blood Pump IV ONE (16:48)
[2020-12-22] MEDS ORDERED: NS 275ml ONE (16:48)
--- NOTE | 2020-12-22 17:40 | Cardiology Report ---
APPROVED REPORT EKG Measurement Heart [id number] <Conclusion> Sinus tachycardia Moderate voltage criteria for LVH, may be normal variant Borderline ECG
--- NOTE | 2020-12-22 18:57 | Surgery Progress Note ---
Surgery Progress Note Subjective Additional Comments bleeding episode overnight no n/v now no bleeding hold on removal of rocket Objective Last 24 Hour Vital Signs Date Time Temp Pulse Resp B/P (MAP) Pulse Ox O2 Delivery O2 Flow Rate FiO2 12/22/20 16:00 110 12/22/20 16:00 99.1 101 20 106/72 (83) 98 12/22/20 12:00 110 12/22/20 12:00 98.7 115 20 105/68 (80) 97 12/22/20 09:00 Room Air 12/22/20 08:00 99.2 115 20 105/68 (80) 97 12/22/20 08:00 117 12/22/20 04:00 106 12/22/20 04:00 98.0 95 20 120/81 (94) 99 12/22/20 00:00 99.0 100 20 119/78 (92) 97 12/22/20 00:00 115 12/21/20 22:09 Room Air 12/21/20 20:00 98.6 106 20 117/79 (92) 97 12/21/20 20:00 115 I&O Intake and Output 12/21/20 12/22/20 19:00 07:00 Intake Total 1000 ml 1510 ml Balance 1000 ml 1510 ml Intake Oral 1000 ml 960 ml IV Total 550 ml # Voids 4 4 Dressing: saturated Cardiovascular: RSR Respiratory: decreased breath sounds Abdomen: soft, non-tender, present bowel sounds, non-distended Extremities: no edema, no tenderness, no cyanosis Laboratory Tests Test 12/22/20 06:40 12/22/20 13:35 White Blood Count 4.1 K/UL (4.8-10.8) L Red Blood Count 4.04 M/UL (4.20-5.40) L Hemoglobin 10.8 G/DL (12.0-16.0) L Hematocrit 35.1 % (37.0-47.0) L Mean Corpuscular Volume 87 FL (80-99) Mean Corpuscular Hemoglobin 26.7 PG (27.0-31.0) L Mean Corpuscular Hemoglobin Concent 30.7 G/DL (32.0-36.0) L Red Cell Distribution Width 20.0 % (11.6-14.8) H Platelet Count 329 K/UL (150-450) Mean Platelet Volume 6.4 FL (6.5-10.1) L Neutrophils (%) (Auto) % (45.0-75.0) Lymphocytes (%) (Auto) % (20.0-45.0) Monocytes (%) (Auto) % (1.0-10.0) Eosinophils (%) (Auto) % (0.0-3.0) Basophils (%) (Auto) % (0.0-2.0) Differential Total Cells Counted 100 Neutrophils % (Manual) 53 % (45-75) Lymphocytes % (Manual) 8 % (20-45) L Monocytes % (Manual) 24 % (1-10) H Eosinophils % (Manual) 11 % (0-3) H Basophils % (Manual) 1 % (0-2) Band Neutrophils 3 % (0-8) Platelet Estimate Adequate Platelet Morphology Normal Anisocytosis 2+ Prothrombin Time 11.4 SEC (9.30-11.50) Prothromb Time International Ratio 1.0 (0.9-1.1) Activated Partial Thromboplast Time 29 SEC (23-33) Sodium Level 141 MMOL/L (136-145) Potassium Level 3.5 MMOL/L (3.5-5.1) Chloride Level 109 MMOL/L (98-107) H Carbon Dioxide Level 24 MMOL/L (21-32) Anion Gap 8 mmol/L (5-15) Blood Urea Nitrogen 7 mg/dL (7-18) Creatinine 0.7 MG/DL (0.55-1.30) Estimat Glomerular Filtration Rate > 60 mL/min (>60) Glucose Level 72 MG/DL (74-106) L Calcium Level 8.9 MG/DL (8.5-10.1) Phosphorus Level 3.0 MG/DL (2.5-4.9) Magnesium Level 1.7 MG/DL (1.8-2.4) L Total Bilirubin 0.3 MG/DL (0.2-1.0) Aspartate Amino Transf (AST/SGOT) 23 U/L (15-37) Alanine Aminotransferase (ALT/SGPT) 9 U/L (12-78) L Alkaline Phosphatase 64 U/L (46-116) Total Protein 6.1 G/DL (6.4-8.2) L Albumin 1.7 G/DL (3.4-5.0) L Globulin 4.4 g/dL Albumin/Globulin Ratio 0.4 (1.0-2.7) L Urine Opiates Screen Negative (NEGATIVE) Urine Barbiturates Screen Negative (NEGATIVE) Phencyclidine (PCP) Screen Negative (NEGATIVE) Urine Amphetamines Screen Negative (NEGATIVE) Urine Benzodiazepines Screen Negative (NEGATIVE) Urine Cocaine Screen Negative (NEGATIVE) Urine Marijuana (THC) Screen Negative (NEGATIVE) Plan Problems: (1) Anemia (2) Posterior epistaxis (3) Severe epistaxis Assessment & Plan: 55-year-old female with recent epi taxis. States she is been receiving Lovenox. Identified last night to have severe bleeding from the left nostril. Came in for evaluation. Rhino Rocket initially placed with still some bleeding. Patient was seen at the bedside in the emergency department. Rhino Rocket evaluated pushed and further both balloons insufflated hemostasis obtained patient states no posteriorly leak. No bleeding noted at this time. Admit for further monitoring. Hold anticoagulation. Will follow with recommendations. Thank you for letting participate patient's care ENT eval No acute events currently not bleeding anymore hemostasis obtained seemingly. Labs stable respond to transfusions. Given patient's history medications and condition will hold on removal of nasal packing for at least the next 24 hours to continuously monitor. Trend labs. Will follow with recommendations thank you Candelario Monzon Dec 22, 2020 18:57
--- NOTE | 2020-12-22 19:13 | NUR ---
NURSE NOTES: Received report from Arnold Pt is A/O x4 and verbally responsive. No pain noted. Pt shows no SOB or acute distress. No active bleeding noted on left nose and intact packing. Pt wound care done on bilateral extremities with medicine technologist earlier in the day dressing still intact and dry. Will change dressing if needed. Pt has a PICC on YOSVANY intact running D5 1/2 NS. Bed in lowest position and locked with side rails x2. Call light placed within reach. Will continue plan of care.
--- NOTE | 2020-12-22 19:23 | NUR ---
NURSE HAND-OFF REPORT: Important Events on Shift:COVID MONITORING D/C PLANNING Patient Status: STABLE Diet: CLD Pending Orders: N.A Pending Results/Labs:N.A Pending MD notification:N.A Latest Vital Signs: Temperature 99.1 , Pulse 101 , B/P 106 /72 , Respiratory Rate 20 , O2 SAT 98 , Room Air, O2 Flow Rate . Vital Sign Comment: STABLE EKG Rhythm: Sinus Tachycardia Rhythm change?: N MD Notified?: - MD Response: Latest Danielle Fall Score: 45 Fall Risk: High Risk Safety Measures: Call light Within Reach, Bed Alarm , Side Rails Side Rails x2, Bed position Low and Locked. Fall Precautions: Patient Fall Education Report given to EMMIE OTERO.
[2020-12-22 20:00] VITALS: BP 103/65
[2020-12-22] MEDS: Dyna-Hex 2% Top Sol 2oz TOPIC SCH (20:13)
[2020-12-22] MEDS: Augmentin 875mg Tab ORAL SCH (20:14)
[2020-12-23] VITALS (7 sets, daily range): BP systolic 102–105; BP diastolic 61–72
--- NOTE | 2020-12-23 06:41 | NUR ---
NURSE HAND-OFF REPORT: Important Events on Shift: Had an episode of bleeding from the nose Patient Status: Stable Diet: Clear Liquid Pending Orders: Pending Results/Labs: Pending MD notification: Latest Vital Signs: Temperature 99.2 , Pulse 92 , B/P 103 /67 , Respiratory Rate 20 , O2 SAT 96 , Room Air, O2 Flow Rate . Vital Sign Comment: EKG Rhythm: Sinus Rhythm Rhythm change?: N MD Notified?: - MD Response: Latest Danielle Fall Score: 45 Fall Risk: High Risk Safety Measures: Call light Within Reach, Bed Alarm , Side Rails Side Rails x2, Bed position Low and Locked. Fall Precautions: Patient Fall Education Report given to Solange.
--- NOTE | 2020-12-23 07:00 | NUR ---
NURSE NOTES: Received patient awake. With nasal balloon intact in left nostril. PICC line on right upper arm intact. IV line on left AC intact. Wound dressings on BLE dry and intact. HOB elevated. Bed locked in low position. Call light within reach. Will monitor and continue plan of care.
[2020-12-23 07:28] LABS: HEMATOCRIT 31.9 % (37.0-47.0); HEMOGLOBIN 9.8 G/DL (12.0-16.0); MEAN CORPUSCULAR VOLUME 87 FL (80-99); PLATELET COUNT 329 K/UL (150-450); RED BLOOD COUNT 3.66 M/UL (4.20-5.40); RED CELL DISTRIBUTION WIDTH 19.7 % (11.6-14.8); WHITE BLOOD COUNT 3.4 K/UL (4.8-10.8)
[2020-12-23 07:45] LABS: BLOOD UREA NITROGEN 5 mg/dL (7-18); CALCIUM 8.1 MG/DL (8.5-10.1); CHLORIDE 111 MMOL/L (98-107); CREATININE 0.7 MG/DL (0.55-1.30); POTASSIUM 3.8 MMOL/L (3.5-5.1); SODIUM 141 MMOL/L (136-145)
[2020-12-23 08:05] LABS: ANION GAP 6 mmol/L (5-15); CARBON DIOXIDE 24 MMOL/L (21-32)
[2020-12-23] MEDS: Augmentin 875mg Tab ORAL SCH ×2 (08:58→20:14)
--- NOTE | 2020-12-23 09:36 | Internal Med Progress Note ---
Subjective Physician Name Aaron Willis Attending Physician Aaron Willis M.D. Current Medications Medications (Trade) Dose Ordered Sig/Chon Route PRN Reason Start Time Stop Time Status Last Admin Dose Admin Acetaminophen (Tylenol) 650 mg Q4H PRN ORAL Pain Scale (3-5) 12/20/20 11:30 01/19/21 11:29 12/23/20 08:59 Amoxicillin/ Clavulanate Potassium (Augmentin) 875 mg EVERY 12 HOURS ORAL 12/22/20 21:00 12/29/20 20:59 12/23/20 08:58 Chlorhexidine Gluconate (Cyndi-Hex 2%) 1 applic DAILY@2000 TOPIC 12/21/20 20:00 03/21/21 19:59 12/22/20 20:13 Dextrose/Sodium Chloride 1,000 ml @ 75 mls/hr [id number] IV 12/21/20 06:00 01/20/21 05:59 12/22/20 21:17 Diphenhydramine HCl (Benadryl) 25 mg Q6H PRN ORAL Itching 12/21/20 01:30 01/20/21 01:29 12/21/20 03:26 Hydromorphone HCl (Dilaudid) 2 mg Q8H PRN ORAL pain prior to dressing change 12/20/20 21:15 12/27/20 21:14 12/22/20 14:14 Ondansetron HCl (Zofran) 4 mg Q4H PRN IVP Nausea & Vomiting 12/20/20 21:15 01/19/21 21:14 Allergies: Coded Allergies: ERYTHROMYCIN BASE (Verified Allergy, Unknown, 12/20/20) LATEX, NATURAL RUBBER (Verified Allergy, Unknown, 12/20/20) All Systems: reviewed and negative except above Subjective hemoglobin stable + rectal bleeding FOB ordered Objective Last Vital Signs Date Time Temp Pulse Resp B/P (MAP) Pulse Ox O2 Delivery O2 Flow Rate FiO2 12/23/20 08:00 100.2 113 19 103/72 (82) 97 12/22/20 21:00 Room Air Laboratory Tests Test 12/22/20 13:35 12/23/20 06:20 Urine Opiates Screen Negative (NEGATIVE) Urine Barbiturates Screen Negative (NEGATIVE) Phencyclidine (PCP) Screen Negative (NEGATIVE) Urine Amphetamines Screen Negative (NEGATIVE) Urine Benzodiazepines Screen Negative (NEGATIVE) Urine Cocaine Screen Negative (NEGATIVE) Urine Marijuana (THC) Screen Negative (NEGATIVE) White Blood Count 3.4 K/UL (4.8-10.8) L Red Blood Count 3.66 M/UL (4.20-5.40) L Hemoglobin 9.8 G/DL (12.0-16.0) L Hematocrit 31.9 % (37.0-47.0) L Mean Corpuscular Volume 87 FL (80-99) Mean Corpuscular Hemoglobin 26.7 PG (27.0-31.0) L Mean Corpuscular Hemoglobin Concent 30.7 G/DL (32.0-36.0) L Red Cell Distribution Width 19.7 % (11.6-14.8) H Platelet Count 329 K/UL (150-450) Mean Platelet Volume 6.1 FL (6.5-10.1) L Neutrophils (%) (Auto) % (45.0-75.0) Lymphocytes (%) (Auto) % (20.0-45.0) Monocytes (%) (Auto) % (1.0-10.0) Eosinophils (%) (Auto) % (0.0-3.0) Basophils (%) (Auto) % (0.0-2.0) Neutrophils % (Manual) Pending Lymphocytes % (Manual) Pending Platelet Estimate Pending Platelet Morphology Pending Sodium Level 141 MMOL/L (136-145) Potassium Level 3.8 MMOL/L (3.5-5.1) Chloride Level 111 MMOL/L (98-107) H Carbon Dioxide Level 24 MMOL/L (21-32) Anion Gap 6 mmol/L (5-15) Blood Urea Nitrogen 5 mg/dL (7-18) L Creatinine 0.7 MG/DL (0.55-1.30) Estimat Glomerular Filtration Rate > 60 mL/min (>60) Glucose Level 79 MG/DL (74-106) Calcium Level 8.1 MG/DL (8.5-10.1) L Microbiology Date/Time Source Procedure Growth Status 12/21/20 03:00 Rectum Received Intake and Output 12/22/20 12/23/20 19:00 07:00 Intake Total 1000 ml 1020 ml Balance 1000 ml 1020 ml Intake Oral 1000 ml 1020 ml # Voids 5 3 # Bowel Movements 1 Assessment/Plan Assessment/Plan #epistaxis #acute anemia #HTN #HLD #DVT on lovenox - hold lovenox - prbc transfusion - monitor hemoglobin - surgery consulted - monitor vitals Aaron Willis M.D. Dec 23, 2020 09:36
--- NOTE | 2020-12-23 10:41 | Infectious Diseases Prog Note ---
Assessment/Plan Assessment/Plan IMPRESSION: Sepsis or systemic inflammatory syndrome Nasal bleeding. Sinusitis, Severe anemia status post transfusion, Morbid obesity, Hepatic steatosis, Staph aureus bacteremia treated. RECOMMENDATION: Continue Augmentin Subjective ROS Limited/Unobtainable: No Constitutional: Reports: fever, other - low grade Respiratory: Reports: dry cough Gastrointestinal/Abdominal: Reports: no symptoms Genitourinary: Reports: no symptoms Allergies: Coded Allergies: ERYTHROMYCIN BASE (Verified Allergy, Unknown, 12/20/20) LATEX, NATURAL RUBBER (Verified Allergy, Unknown, 12/20/20) Objective Last 24 Hour Vital Signs Date Time Temp Pulse Resp B/P (MAP) Pulse Ox O2 Delivery O2 Flow Rate FiO2 12/23/20 08:00 100.2 113 19 103/72 (82) 97 12/23/20 04:00 99.2 101 20 103/67 (79) 96 12/23/20 04:00 92 12/23/20 00:00 99.0 95 19 105/64 (78) 97 12/23/20 00:00 91 12/22/20 21:00 Room Air 12/22/20 20:00 99.2 90 20 103/65 (78) 96 12/22/20 20:00 95 12/22/20 16:00 110 12/22/20 16:00 99.1 101 20 106/72 (83) 98 12/22/20 12:00 110 12/22/20 12:00 98.7 115 20 105/68 (80) 97 Height (Feet): 5 Height (Inches): 5.00 Weight (Pounds): 230 HEENT: mucous membranes moist, other - left nostril packed Cardiovascular: tachycardia Abdomen: soft, non tender Extremities: no edema Neurologic/Psychiatric: alert, oriented x 3, responsive Microbiology Date/Time Source Procedure Growth Status 12/21/20 03:00 Rectum Received Laboratory Tests Test 12/22/20 13:35 12/23/20 06:20 Urine Opiates Screen Negative (NEGATIVE) Urine Barbiturates Screen Negative (NEGATIVE) Phencyclidine (PCP) Screen Negative (NEGATIVE) Urine Amphetamines Screen Negative (NEGATIVE) Urine Benzodiazepines Screen Negative (NEGATIVE) Urine Cocaine Screen Negative (NEGATIVE) Urine Marijuana (THC) Screen Negative (NEGATIVE) White Blood Count 3.4 K/UL (4.8-10.8) L Red Blood Count 3.66 M/UL (4.20-5.40) L Hemoglobin 9.8 G/DL (12.0-16.0) L Hematocrit 31.9 % (37.0-47.0) L Mean Corpuscular Volume 87 FL (80-99) Mean Corpuscular Hemoglobin 26.7 PG (27.0-31.0) L Mean Corpuscular Hemoglobin Concent 30.7 G/DL (32.0-36.0) L Red Cell Distribution Width 19.7 % (11.6-14.8) H Platelet Count 329 K/UL (150-450) Mean Platelet Volume 6.1 FL (6.5-10.1) L Neutrophils (%) (Auto) % (45.0-75.0) Lymphocytes (%) (Auto) % (20.0-45.0) Monocytes (%) (Auto) % (1.0-10.0) Eosinophils (%) (Auto) % (0.0-3.0) Basophils (%) (Auto) % (0.0-2.0) Differential Total Cells Counted 100 Neutrophils % (Manual) 55 % (45-75) Lymphocytes % (Manual) 24 % (20-45) Monocytes % (Manual) 11 % (1-10) H Eosinophils % (Manual) 8 % (0-3) H Basophils % (Manual) 2 % (0-2) Band Neutrophils 0 % (0-8) Platelet Estimate Adequate Platelet Morphology Normal Hypochromasia 1+ Anisocytosis 1+ Sodium Level 141 MMOL/L (136-145) Potassium Level 3.8 MMOL/L (3.5-5.1) Chloride Level 111 MMOL/L (98-107) H Carbon Dioxide Level 24 MMOL/L (21-32) Anion Gap 6 mmol/L (5-15) Blood Urea Nitrogen 5 mg/dL (7-18) L Creatinine 0.7 MG/DL (0.55-1.30) Estimat Glomerular Filtration Rate > 60 mL/min (>60) Glucose Level 79 MG/DL (74-106) Calcium Level 8.1 MG/DL (8.5-10.1) L Current Medications Medications (Trade) Dose Ordered Sig/Chon Route PRN Reason Start Time Stop Time Status Last Admin Dose Admin Acetaminophen (Tylenol) 650 mg Q4H PRN ORAL Pain Scale (3-5) 12/20/20 11:30 01/19/21 11:29 12/23/20 08:59 Amoxicillin/ Clavulanate Potassium (Augmentin) 875 mg EVERY 12 HOURS ORAL 12/22/20 21:00 12/29/20 20:59 12/23/20 08:58 Chlorhexidine Gluconate (Cyndi-Hex 2%) 1 applic DAILY@2000 TOPIC 12/21/20 20:00 03/21/21 19:59 12/22/20 20:13 Dextrose/Sodium Chloride 1,000 ml @ 75 mls/hr [id number] IV 12/21/20 06:00 01/20/21 05:59 12/22/20 21:17 Diphenhydramine HCl (Benadryl) 25 mg Q6H PRN ORAL Itching 12/21/20 01:30 01/20/21 01:29 12/21/20 03:26 Hydromorphone HCl (Dilaudid) 2 mg Q8H PRN ORAL pain prior to dressing change 12/20/20 21:15 12/27/20 21:14 12/22/20 14:14 Ondansetron HCl (Zofran) 4 mg Q4H PRN IVP Nausea & Vomiting 12/20/20 21:15 01/19/21 21:14 Sterling Montiel MD Dec 23, 2020 10:41
[2020-12-23] MEDS: D5 1/2NS 1,000 ML IV SCH (11:42)
--- NOTE | 2020-12-23 13:05 | Surgery Progress Note ---
Surgery Progress Note Subjective Additional Comments no bleeding active h/h noted balloon deflated not ready for removal. will monitor for bleeding prior to removal Objective Last 24 Hour Vital Signs Date Time Temp Pulse Resp B/P (MAP) Pulse Ox O2 Delivery O2 Flow Rate FiO2 12/23/20 09:29 99.4 12/23/20 09:00 Room Air 12/23/20 08:00 100.2 113 19 103/72 (82) 97 12/23/20 08:00 110 12/23/20 04:00 99.2 101 20 103/67 (79) 96 12/23/20 04:00 92 12/23/20 00:00 99.0 95 19 105/64 (78) 97 12/23/20 00:00 91 12/22/20 21:00 Room Air 12/22/20 20:00 99.2 90 20 103/65 (78) 96 12/22/20 20:00 95 12/22/20 16:00 110 12/22/20 16:00 99.1 101 20 106/72 (83) 98 I&O Intake and Output 12/22/20 12/23/20 19:00 07:00 Intake Total 1000 ml 1020 ml Balance 1000 ml 1020 ml Intake Oral 1000 ml 1020 ml # Voids 5 3 # Bowel Movements 1 Dressing: dry Wound: clean Cardiovascular: RSR Respiratory: clear Abdomen: soft, flat, non-tender, present bowel sounds Extremities: no edema, no tenderness, no cyanosis Laboratory Tests Test 12/22/20 13:35 12/23/20 06:20 Urine Opiates Screen Negative (NEGATIVE) Urine Barbiturates Screen Negative (NEGATIVE) Phencyclidine (PCP) Screen Negative (NEGATIVE) Urine Amphetamines Screen Negative (NEGATIVE) Urine Benzodiazepines Screen Negative (NEGATIVE) Urine Cocaine Screen Negative (NEGATIVE) Urine Marijuana (THC) Screen Negative (NEGATIVE) White Blood Count 3.4 K/UL (4.8-10.8) L Red Blood Count 3.66 M/UL (4.20-5.40) L Hemoglobin 9.8 G/DL (12.0-16.0) L Hematocrit 31.9 % (37.0-47.0) L Mean Corpuscular Volume 87 FL (80-99) Mean Corpuscular Hemoglobin 26.7 PG (27.0-31.0) L Mean Corpuscular Hemoglobin Concent 30.7 G/DL (32.0-36.0) L Red Cell Distribution Width 19.7 % (11.6-14.8) H Platelet Count 329 K/UL (150-450) Mean Platelet Volume 6.1 FL (6.5-10.1) L Neutrophils (%) (Auto) % (45.0-75.0) Lymphocytes (%) (Auto) % (20.0-45.0) Monocytes (%) (Auto) % (1.0-10.0) Eosinophils (%) (Auto) % (0.0-3.0) Basophils (%) (Auto) % (0.0-2.0) Differential Total Cells Counted 100 Neutrophils % (Manual) 55 % (45-75) Lymphocytes % (Manual) 24 % (20-45) Monocytes % (Manual) 11 % (1-10) H Eosinophils % (Manual) 8 % (0-3) H Basophils % (Manual) 2 % (0-2) Band Neutrophils 0 % (0-8) Platelet Estimate Adequate Platelet Morphology Normal Hypochromasia 1+ Anisocytosis 1+ Sodium Level 141 MMOL/L (136-145) Potassium Level 3.8 MMOL/L (3.5-5.1) Chloride Level 111 MMOL/L (98-107) H Carbon Dioxide Level 24 MMOL/L (21-32) Anion Gap 6 mmol/L (5-15) Blood Urea Nitrogen 5 mg/dL (7-18) L Creatinine 0.7 MG/DL (0.55-1.30) Estimat Glomerular Filtration Rate > 60 mL/min (>60) Glucose Level 79 MG/DL (74-106) Calcium Level 8.1 MG/DL (8.5-10.1) L Plan Problems: (1) Anemia (2) Posterior epistaxis (3) Severe epistaxis Assessment & Plan: 55-year-old female with recent epi taxis. States she is been receiving Lovenox. Identified last night to have severe bleeding from the left nostril. Came in for evaluation. Rhino Rocket initially placed with still some bleeding. Patient was seen at the bedside in the emergency department. Rhino Rocket evaluated pushed and further both balloons insufflated hemostasis obtained patient states no posteriorly leak. No bleeding noted at this time. Admit for further monitoring. Hold anticoagulation. Will follow with recommendations. Thank you for letting participate patient's care ENT eval No acute events currently not bleeding anymore hemostasis obtained seemingly. Labs stable respond to transfusions. Given patient's history medications and condition will hold on removal of nasal packing for at least the next 24 hours to continuously monitor. Trend labs. Will follow with recommendations thank you Candelario Monzon Dec 23, 2020 13:05
--- NOTE | 2020-12-23 15:18 | NUR ---
NURSE NOTES: Both nasal balloons deflated by Dr Monzon this morning. Patient being monitored for bleeding, stated that she is not bleeding as much anymore and that it is fine. Will continue to monitor.
--- NOTE | 2020-12-23 15:43 | NUR ---
CASE MANAGEMENT: REVIEW 12/23/2020 SI:EPISTAXIS VS: T 100.2 HR 113 RR 19 B/P 103/72 SATS 97% ON RA LABS: WBC 3.4 CL 111 BUN 5 CA 8.1 IS:D5NS @ 75 mL/HR AUGMENTIN PO Q12H TELE
--- NOTE | 2020-12-23 16:26 | NUR ---
[employer]UR[employer]IC[employer]/REVIEW FAXED TO [facility] #[phone] fax# [phone]
--- NOTE | 2020-12-23 18:36 | NUR ---
NURSE HAND-OFF REPORT: Important Events on Shift: Rhino Rocket deflated, with very minimal posterior bleeding. Patient transferred from 212-2 to 219-2. Upgraded to regular soft diet. Patient Status: alert Diet: regular soft Pending Orders: Pending Results/Labs: Pending MD notification: Latest Vital Signs: Temperature 100.8 , Pulse 109 , B/P 102 /61 , Respiratory Rate 18 , O2 SAT 96 , Room Air, O2 Flow Rate . Vital Sign Comment: EKG Rhythm: Sinus Tachycardia Rhythm change?: N MD Notified?: - MD Response: Latest Danielle Fall Score: 45 Fall Risk: High Risk Safety Measures: Call light Within Reach, Bed Alarm , Side Rails Side Rails x2, Bed position Low and Locked. Fall Precautions: Patient Fall Education . Addendum: 12/23/20 at 1926 by Solange Byrnes RN NURSE NOTES: Report given to Erinn OLEA
--- NOTE | 2020-12-23 19:10 | NUR ---
NURSE NOTES: Received report from EMMIE Narvaez. Pt is A/O x4 and verbally responsive. No pain noted. Pt shows no SOB or acute distress. No active bleeding noted on left nose and intact packing with rhino rocket. Pt wound care done on bilateral extremities with dining server earlier in the day dressing still intact and dry. Will change dressing if needed. Pt has a PICC on YOSVANY intact running D5 1/2 NS. Bed in lowest position and locked with side rails x2. Call light placed within reach. Will continue plan of care.
[2020-12-23] MEDS: Dyna-Hex 2% Top Sol 2oz TOPIC SCH (20:13)
[2020-12-23] MEDS ORDERED: Aluminum Hydroxide Gel Susp 15ml ORAL PRN ×2 (22:15)
[2020-12-24] VITALS: BP 139/70
[2020-12-24] MEDS: D5 1/2NS 1,000 ML IV SCH ×2 (01:13→15:02)
[2020-12-24 04:00] VITALS: BP 106/73
--- NOTE | 2020-12-24 06:31 | NUR ---
NURSE HAND-OFF REPORT: Important Events on Shift: Rhino Rocket deflated and no bleeding episode noted. Patient Status: Stable Diet: Regular Pending Orders: Pending Results/Labs: Pending MD notification: Latest Vital Signs: Temperature 99.5 , Pulse 108 , B/P 106 /73 , Respiratory Rate 18 , O2 SAT 97 , Room Air, O2 Flow Rate . Vital Sign Comment: EKG Rhythm: Sinus Tachycardia Rhythm change?: N MD Notified?: - MD Response: Latest Danielle Fall Score: 45 Fall Risk: High Risk Safety Measures: Call light Within Reach, Bed Alarm , Side Rails Side Rails x2, Bed position Low and Locked. Fall Precautions: Patient Fall Education Report given to Aditi
--- NOTE | 2020-12-24 07:50 | NUR ---
NURSE NOTES: pt in bed having breakfast. AOx4 and able to verbalized needs, no complains of pain. Pt on cardiac rn no signs of cardiac or respiratory distress at this time. Bed in lowest position, call light within reach. pt is bleeding just a little bit at this time.
--- NOTE | 2020-12-24 08:33 | Internal Med Progress Note ---
Subjective Physician Name Aaron Willis Attending Physician Aaron Willis M.D. Current Medications Medications (Trade) Dose Ordered Sig/Chon Route PRN Reason Start Time Stop Time Status Last Admin Dose Admin Acetaminophen (Tylenol) 650 mg Q4H PRN ORAL Pain Scale (3-5) 12/20/20 11:30 01/19/21 11:29 12/23/20 08:59 Aluminum Hydroxide (Amphojel) 960 mg Q6H PRN ORAL Abdominal cramps 12/23/20 22:15 01/22/21 22:14 12/23/20 22:48 Amoxicillin/ Clavulanate Potassium (Augmentin) 875 mg EVERY 12 HOURS ORAL 12/22/20 21:00 12/29/20 20:59 12/23/20 20:14 Chlorhexidine Gluconate (Cyndi-Hex 2%) 1 applic DAILY@2000 TOPIC 12/21/20 20:00 03/21/21 19:59 12/23/20 20:13 Dextrose/Sodium Chloride 1,000 ml @ 75 mls/hr [id number] IV 12/21/20 06:00 01/20/21 05:59 12/24/20 01:13 Diphenhydramine HCl (Benadryl) 25 mg Q6H PRN ORAL Itching 12/21/20 01:30 01/20/21 01:29 12/21/20 03:26 Hydromorphone HCl (Dilaudid) 2 mg Q8H PRN ORAL pain prior to dressing change 12/20/20 21:15 12/27/20 21:14 12/22/20 14:14 Ondansetron HCl (Zofran) 4 mg Q4H PRN IVP Nausea & Vomiting 12/20/20 21:15 01/19/21 21:14 Allergies: Coded Allergies: ERYTHROMYCIN BASE (Verified Allergy, Unknown, 12/20/20) LATEX, NATURAL RUBBER (Verified Allergy, Unknown, 12/20/20) Subjective hemoglobin stable + rectal bleeding FOB ordered GI consulted Rhino Rocket removed with no bleeding will monitor Objective Last Vital Signs Date Time Temp Pulse Resp B/P (MAP) Pulse Ox O2 Delivery O2 Flow Rate FiO2 12/24/20 04:25 108 12/24/20 04:00 99.5 18 106/73 (84) 97 12/23/20 21:11 Room Air Laboratory Tests Test 12/23/20 20:47 Stool Occult Blood Positive (NEGATIVE) Intake and Output 12/23/20 12/24/20 19:00 07:00 # Voids 8 3 # Bowel Movements 2 Assessment/Plan Assessment/Plan #epistaxis #acute anemia #HTN #HLD #DVT on lovenox - hold lovenox - prbc transfusion - monitor hemoglobin - surgery consulted - monitor vitals Aaron Willis M.D. Dec 24, 2020 08:33
[2020-12-24 08:54] VITALS: BP 115/69
[2020-12-24] MEDS: Augmentin 875mg Tab ORAL SCH ×2 (09:14→21:32)
[2020-12-24 11:22] LABS: HEMATOCRIT 33.1 % (37.0-47.0); HEMOGLOBIN 9.9 G/DL (12.0-16.0); MEAN CORPUSCULAR VOLUME 87 FL (80-99); PLATELET COUNT 317 K/UL (150-450); RED BLOOD COUNT 3.78 M/UL (4.20-5.40); RED CELL DISTRIBUTION WIDTH 19.8 % (11.6-14.8); WHITE BLOOD COUNT 4.2 K/UL (4.8-10.8)
[2020-12-24 11:34] LABS: ANION GAP 8 mmol/L (5-15); BLOOD UREA NITROGEN 8 mg/dL (7-18); CALCIUM 8.6 MG/DL (8.5-10.1); CARBON DIOXIDE 23 MMOL/L (21-32); CHLORIDE 109 MMOL/L (98-107); CREATININE 0.8 MG/DL (0.55-1.30); POTASSIUM 3.5 MMOL/L (3.5-5.1); SODIUM 140 MMOL/L (136-145)
--- NOTE | 2020-12-24 11:52 | Surgery Progress Note ---
Surgery Progress Note Subjective Additional Comments Patient seen and examined improved no bleeding Rhino Rocket removed with no bleeding will monitor Objective Last 24 Hour Vital Signs Date Time Temp Pulse Resp B/P (MAP) Pulse Ox O2 Delivery O2 Flow Rate FiO2 12/24/20 08:54 99.0 107 20 115/69 (84) 96 12/24/20 04:25 108 12/24/20 04:00 99.5 107 18 106/73 (84) 97 12/24/20 00:00 100.0 105 22 139/70 (93) 97 12/23/20 21:11 Room Air 12/23/20 20:00 100.7 110 20 105/68 (80) 99 12/23/20 20:00 107 12/23/20 16:00 109 12/23/20 16:00 100.8 105 18 102/61 (75) 96 12/23/20 12:00 99.4 99 18 102/61 (75) 97 12/23/20 12:00 102 I&O Intake and Output 12/23/20 12/24/20 19:00 07:00 # Voids 8 3 # Bowel Movements 2 Dressing: dry Wound: clean Cardiovascular: RSR Respiratory: clear Abdomen: soft, non-tender, present bowel sounds, non-distended Extremities: edema, no tenderness, no cyanosis, pulses, other Laboratory Tests Test 12/23/20 20:47 12/24/20 11:00 Stool Occult Blood Positive (NEGATIVE) White Blood Count 4.2 K/UL (4.8-10.8) L Red Blood Count 3.78 M/UL (4.20-5.40) L Hemoglobin 9.9 G/DL (12.0-16.0) L Hematocrit 33.1 % (37.0-47.0) L Mean Corpuscular Volume 87 FL (80-99) Mean Corpuscular Hemoglobin 26.3 PG (27.0-31.0) L Mean Corpuscular Hemoglobin Concent 30.1 G/DL (32.0-36.0) L Red Cell Distribution Width 19.8 % (11.6-14.8) H Platelet Count 317 K/UL (150-450) Mean Platelet Volume 6.0 FL (6.5-10.1) L Neutrophils (%) (Auto) % (45.0-75.0) Lymphocytes (%) (Auto) % (20.0-45.0) Monocytes (%) (Auto) % (1.0-10.0) Eosinophils (%) (Auto) % (0.0-3.0) Basophils (%) (Auto) % (0.0-2.0) Neutrophils % (Manual) Pending Lymphocytes % (Manual) Pending Platelet Estimate Pending Platelet Morphology Pending Sodium Level 140 MMOL/L (136-145) Potassium Level 3.5 MMOL/L (3.5-5.1) Chloride Level 109 MMOL/L (98-107) H Carbon Dioxide Level 23 MMOL/L (21-32) Anion Gap 8 mmol/L (5-15) Blood Urea Nitrogen 8 mg/dL (7-18) Creatinine 0.8 MG/DL (0.55-1.30) Estimat Glomerular Filtration Rate > 60 mL/min (>60) Glucose Level 97 MG/DL (74-106) Calcium Level 8.6 MG/DL (8.5-10.1) Plan Problems: (1) Anemia (2) Posterior epistaxis (3) Severe epistaxis Assessment & Plan: 55-year-old female with recent epi taxis. States she is been receiving Lovenox. Identified last night to have severe bleeding from the left nostril. Came in for evaluation. Rhino Rocket initially placed with still some bleeding. Patient was seen at the bedside in the emergency department. Rhino Rocket evaluated pushed and further both balloons insufflated hemostasis obtained patient states no posteriorly leak. No bleeding noted at this time. Admit for further monitoring. Hold anticoagulation. Will follow with recommendations. Thank you for letting participate patient's care ENT eval No acute events currently not bleeding anymore hemostasis obtained seemingly. Labs stable respond to transfusions. Given patient's history medications and condition will hold on removal of nasal packing for at least the next 24 hours to continuously monitor. Trend labs. Will follow with recommendations thank you Rhino Rocket removed no bleeding monitor for 24 hours H&H stable no bleeding okay to discharge hold anticoagulation Candelario Monzon Dec 24, 2020 11:52
[2020-12-24 12:00] VITALS: BP 115/69
--- NOTE | 2020-12-24 12:42 | Infectious Diseases Prog Note ---
Assessment/Plan Assessment/Plan IMPRESSION: Sepsis or systemic inflammatory syndrome Nasal bleeding. Sinusitis, Severe anemia status post transfusion, Morbid obesity, Hepatic steatosis, Staph aureus bacteremia treated. RECOMMENDATION: Continue Augmentin until tomorrow Subjective ROS Limited/Unobtainable: No Constitutional: Reports: no symptoms HEENT: Reports: no symptoms Cardiovascular: Reports: no symptoms Gastrointestinal/Abdominal: Reports: no symptoms Genitourinary: Reports: no symptoms Allergies: Coded Allergies: ERYTHROMYCIN BASE (Verified Allergy, Unknown, 12/20/20) LATEX, NATURAL RUBBER (Verified Allergy, Unknown, 12/20/20) Objective Last 24 Hour Vital Signs Date Time Temp Pulse Resp B/P (MAP) Pulse Ox O2 Delivery O2 Flow Rate FiO2 12/24/20 08:54 99.0 107 20 115/69 (84) 96 12/24/20 04:25 108 12/24/20 04:00 99.5 107 18 106/73 (84) 97 12/24/20 00:00 100.0 105 22 139/70 (93) 97 12/23/20 21:11 Room Air 12/23/20 20:00 100.7 110 20 105/68 (80) 99 12/23/20 20:00 107 12/23/20 16:00 109 12/23/20 16:00 100.8 105 18 102/61 (75) 96 Height (Feet): 5 Height (Inches): 5.00 Weight (Pounds): 230 General Appearance: no acute distress HEENT: other - left nostril pack was removed, no bleeding Respiratory/Chest: lungs clear Cardiovascular: normal rate Extremities: no edema Neurologic/Psychiatric: alert, oriented x 3, responsive Laboratory Tests Test 12/23/20 20:47 12/24/20 11:00 Stool Occult Blood Positive (NEGATIVE) White Blood Count 4.2 K/UL (4.8-10.8) L Red Blood Count 3.78 M/UL (4.20-5.40) L Hemoglobin 9.9 G/DL (12.0-16.0) L Hematocrit 33.1 % (37.0-47.0) L Mean Corpuscular Volume 87 FL (80-99) Mean Corpuscular Hemoglobin 26.3 PG (27.0-31.0) L Mean Corpuscular Hemoglobin Concent 30.1 G/DL (32.0-36.0) L Red Cell Distribution Width 19.8 % (11.6-14.8) H Platelet Count 317 K/UL (150-450) Mean Platelet Volume 6.0 FL (6.5-10.1) L Neutrophils (%) (Auto) % (45.0-75.0) Lymphocytes (%) (Auto) % (20.0-45.0) Monocytes (%) (Auto) % (1.0-10.0) Eosinophils (%) (Auto) % (0.0-3.0) Basophils (%) (Auto) % (0.0-2.0) Differential Total Cells Counted 100 Neutrophils % (Manual) 46 % (45-75) Lymphocytes % (Manual) 20 % (20-45) Monocytes % (Manual) 23 % (1-10) H Eosinophils % (Manual) 8 % (0-3) H Basophils % (Manual) 3 % (0-2) H Band Neutrophils 0 % (0-8) Platelet Estimate Adequate Platelet Morphology Normal Hypochromasia 1+ Anisocytosis 1+ Sodium Level 140 MMOL/L (136-145) Potassium Level 3.5 MMOL/L (3.5-5.1) Chloride Level 109 MMOL/L (98-107) H Carbon Dioxide Level 23 MMOL/L (21-32) Anion Gap 8 mmol/L (5-15) Blood Urea Nitrogen 8 mg/dL (7-18) Creatinine 0.8 MG/DL (0.55-1.30) Estimat Glomerular Filtration Rate > 60 mL/min (>60) Glucose Level 97 MG/DL (74-106) Calcium Level 8.6 MG/DL (8.5-10.1) Current Medications Medications (Trade) Dose Ordered Sig/Chon Route PRN Reason Start Time Stop Time Status Last Admin Dose Admin Acetaminophen (Tylenol) 650 mg Q4H PRN ORAL Pain Scale (3-5) 12/20/20 11:30 01/19/21 11:29 12/23/20 08:59 Aluminum Hydroxide (Amphojel) 960 mg Q6H PRN ORAL Abdominal cramps 12/23/20 22:15 01/22/21 22:14 12/23/20 22:48 Amoxicillin/ Clavulanate Potassium (Augmentin) 875 mg EVERY 12 HOURS ORAL 12/22/20 21:00 3/2/21 20:59 12/24/20 09:14 Chlorhexidine Gluconate (Cyndi-Hex 2%) 1 applic DAILY@2000 TOPIC 12/21/20 20:00 03/21/21 19:59 12/23/20 20:13 Dextrose/Sodium Chloride 1,000 ml @ 75 mls/hr [id number] IV 12/21/20 06:00 01/20/21 05:59 12/24/20 01:13 Diphenhydramine HCl (Benadryl) 25 mg Q6H PRN ORAL Itching 12/21/20 01:30 01/20/21 01:29 12/21/20 03:26 Hydromorphone HCl (Dilaudid) 2 mg Q8H PRN ORAL pain prior to dressing change 12/20/20 21:15 12/27/20 21:14 12/22/20 14:14 Ondansetron HCl (Zofran) 4 mg Q4H PRN IVP Nausea & Vomiting 12/20/20 21:15 01/19/21 21:14 12/24/20 09:14 Sterling Montiel MD Dec 24, 2020 12:42
--- NOTE | 2020-12-24 12:52 | General Progress Note ---
Subjective ROS Limited/Unobtainable: Yes Allergies: Coded Allergies: ERYTHROMYCIN BASE (Verified Allergy, Unknown, 12/20/20) LATEX, NATURAL RUBBER (Verified Allergy, Unknown, 12/20/20) Objective Last 24 Hour Vital Signs Date Time Temp Pulse Resp B/P (MAP) Pulse Ox O2 Delivery O2 Flow Rate FiO2 12/24/20 08:54 99.0 107 20 115/69 (84) 96 12/24/20 04:25 108 12/24/20 04:00 99.5 107 18 106/73 (84) 97 12/24/20 00:00 100.0 105 22 139/70 (93) 97 12/23/20 21:11 Room Air 12/23/20 20:00 100.7 110 20 105/68 (80) 99 12/23/20 20:00 107 12/23/20 16:00 109 12/23/20 16:00 100.8 105 18 102/61 (75) 96 Intake and Output 12/23/20 12/24/20 19:00 07:00 # Voids 8 3 # Bowel Movements 2 Laboratory Tests 12/23/20 20:47: Stool Occult Blood Positive 12/24/20 11:00: White Blood Count 4.2L, Red Blood Count 3.78L, Hemoglobin 9.9L, Hematocrit 33.1L , Mean Corpuscular Volume 87, Mean Corpuscular Hemoglobin 26.3L, Mean Corpuscular Hemoglobin Concent 30.1L, Red Cell Distribution Width 19.8H, Platelet Count 317, Mean Platelet Volume 6.0L, Neutrophils (%) (Auto) , Lymphocytes (%) (Auto) , Monocytes (%) (Auto) , Eosinophils (%) (Auto) , Basophils (%) (Auto) , Differential Total Cells Counted 100, Neutrophils % (Manual) 46, Lymphocytes % (Manual) 20, Monocytes % (Manual) 23H, Eosinophils % (Manual) 8H, Basophils % (Manual) 3H, Band Neutrophils 0, Platelet Estimate Adequate, Platelet Morphology Normal, Hypochromasia 1+, Anisocytosis 1+, Sodium Level 140, Potassium Level 3.5, Chloride Level 109H, Carbon Dioxide Level 23, Anion Gap 8, Blood Urea Nitrogen 8, Creatinine 0.8, Estimat Glomerular Filtration Rate > 60, Glucose Level 97, Calcium Level 8.6 Height (Feet): 5 Height (Inches): 5.00 Weight (Pounds): 230 General Appearance: no apparent distress EENT: normal ENT inspection Neck: supple Cardiovascular: normal rate Respiratory/Chest: decreased breath sounds Abdomen: normal bowel sounds, non tender, soft Extremities: non-tender Assessment/Plan Problem List: (1) Severe epistaxis ICD Codes: R04.0 - Epistaxis SNOMED: 850918108 (2) Anemia ICD Codes: D64.9 - Anemia, unspecified SNOMED: 714502452 Assessment/Plan: stool ob positive most likely from the nose bleed will hold EGd for now needs ENT eval will Wilfrid Hoang MD Dec 24, 2020 12:52
--- NOTE | 2020-12-24 13:56 | NUR ---
[employer] FAXED TO [facility] #[phone] fax# [phone]
[2020-12-24 16:00] VITALS: BP 112/70
[2020-12-24] MEDS: HYDROmorphone 2mg tab ORAL PRN (17:38)
--- NOTE | 2020-12-24 19:15 | NUR ---
NURSE NOTES: Received report from EMMIE Jorgensen. Pt is A/O x4 and verbally responsive. No pain noted. Pt shows no SOB or acute distress. No active bleeding noted on left nose and intact packing with rhino rocket.Pt has a PICC on YOSVANY intact running D5 1/2 NS. Bed in lowest position and locked with side rails x2. Call light placed within reach. Will continue plan of care.
[2020-12-24 20:00] VITALS: BP 120/71
[2020-12-24] MEDS: Dyna-Hex 2% Top Sol 2oz TOPIC SCH (20:00)
--- NOTE | 2020-12-24 20:56 | NUR ---
NURSE HAND-OFF REPORT: Important Events on Shift:[]pt had wound dressing change of bilateral legs. Magnesium is low order of 3 bags of mag. will be given at shift leader Patient Status: []full Diet: []regular Pending Orders: [] Pending Results/Labs:[] Pending MD notification:[] Latest Vital Signs: Temperature 99.0 , Pulse 100 , B/P 112 /70 , Respiratory Rate 18 , O2 SAT 98 , Room Air, O2 Flow Rate . Vital Sign Comment: [] EKG Rhythm: Sinus Rhythm Rhythm change?: N MD Notified?: - MD Response: Latest Danielle Fall Score: 45 Fall Risk: High Risk Safety Measures: Call light Within Reach, Bed Alarm , Side Rails Side Rails x2, Bed position Low and Locked. Fall Precautions: y Patient Fall Education y Report given to []. Rocio/EMMIE
[2020-12-25] VITALS: BP 107/65
--- NOTE | 2020-12-25 01:48 | NUR ---
NURSE NOTES: for the magnesium that was low the ordered mag. luis florence gave it
--- NOTE | 2020-12-25 01:52 | NUR ---
NURSE NOTES: pt. complainof left leg pain i gave tylenol
--- NOTE | 2020-12-25 01:54 | NUR ---
NURSE NOTES: RD ASSESSMENT AND RECOMMENDATION PATIENT RESTING,NO PAIN,
[2020-12-25] MEDS: D5 1/2NS 1,000 ML IV SCH ×2 (03:20→10:13)
[2020-12-25 04:00] VITALS: BP 109/53
[2020-12-25 06:50] LABS: HEMATOCRIT 31.2 % (37.0-47.0); HEMOGLOBIN 9.6 G/DL (12.0-16.0); MEAN CORPUSCULAR VOLUME 87 FL (80-99); PLATELET COUNT 313 K/UL (150-450); RED BLOOD COUNT 3.59 M/UL (4.20-5.40); RED CELL DISTRIBUTION WIDTH 19.8 % (11.6-14.8); WHITE BLOOD COUNT 3.9 K/UL (4.8-10.8)
[2020-12-25 07:04] LABS: ANION GAP 5 mmol/L (5-15); BLOOD UREA NITROGEN 7 mg/dL (7-18); CARBON DIOXIDE 25 MMOL/L (21-32); CHLORIDE 113 MMOL/L (98-107); CREATININE 0.8 MG/DL (0.55-1.30); SODIUM 143 MMOL/L (136-145)
[2020-12-25 08:00] VITALS: BP 108/85
--- NOTE | 2020-12-25 08:01 | NUR ---
NURSE NOTES: Pt Aox4 and able to express needs. pt available to verbalize needs. Pt on radiation monitor no signs of cardiac or respiratory distress. pt in bed in lowest position, call light within reach. Picc line is working well.
--- NOTE | 2020-12-25 10:07 | Infectious Diseases Prog Note ---
Assessment/Plan Assessment/Plan IMPRESSION: Sepsis or systemic inflammatory syndrome resolved Nasal bleeding. Sinusitis, Severe anemia status post transfusion, Morbid obesity, Hepatic steatosis, Staph aureus bacteremia treated. Decreased Mg RECOMMENDATION: Discontinue Augmentin Subjective ROS Limited/Unobtainable: Yes HEENT: Reports: other - no nasal bleeding Allergies: Coded Allergies: ERYTHROMYCIN BASE (Verified Allergy, Unknown, 12/20/20) LATEX, NATURAL RUBBER (Verified Allergy, Unknown, 12/20/20) Objective Last 24 Hour Vital Signs Date Time Temp Pulse Resp B/P (MAP) Pulse Ox O2 Delivery O2 Flow Rate FiO2 12/25/20 04:00 88 12/25/20 04:00 97.7 85 20 109/53 (71) 98 12/25/20 00:00 97.7 91 20 107/65 (79) 98 12/24/20 21:00 Room Air 12/24/20 20:00 101 12/24/20 20:00 97.4 106 20 120/71 (87) 98 12/24/20 16:00 99.0 108 18 112/70 (84) 98 12/24/20 16:00 100 12/24/20 12:00 108 12/24/20 12:00 99.2 99 20 115/69 (84) 96 Height (Feet): 5 Height (Inches): 5.00 Weight (Pounds): 230 HEENT: mucous membranes moist Respiratory/Chest: lungs clear Cardiovascular: normal rate Abdomen: soft, non tender Extremities: no edema Neurologic/Psychiatric: other - sleeping Laboratory Tests Test 12/24/20 11:00 12/25/20 06:30 12/25/20 08:38 White Blood Count 4.2 K/UL (4.8-10.8) L 3.9 K/UL (4.8-10.8) L Red Blood Count 3.78 M/UL (4.20-5.40) L 3.59 M/UL (4.20-5.40) L Hemoglobin 9.9 G/DL (12.0-16.0) L 9.6 G/DL (12.0-16.0) L Hematocrit 33.1 % (37.0-47.0) L 31.2 % (37.0-47.0) L Mean Corpuscular Volume 87 FL (80-99) 87 FL (80-99) Mean Corpuscular Hemoglobin 26.3 PG (27.0-31.0) L 26.7 PG (27.0-31.0) L Mean Corpuscular Hemoglobin Concent 30.1 G/DL (32.0-36.0) L 30.7 G/DL (32.0-36.0) L Red Cell Distribution Width 19.8 % (11.6-14.8) H 19.8 % (11.6-14.8) H Platelet Count 317 K/UL (150-450) 313 K/UL (150-450) Mean Platelet Volume 6.0 FL (6.5-10.1) L 6.5 FL (6.5-10.1) Neutrophils (%) (Auto) % (45.0-75.0) % (45.0-75.0) Lymphocytes (%) (Auto) % (20.0-45.0) % (20.0-45.0) Monocytes (%) (Auto) % (1.0-10.0) % (1.0-10.0) Eosinophils (%) (Auto) % (0.0-3.0) % (0.0-3.0) Basophils (%) (Auto) % (0.0-2.0) % (0.0-2.0) Differential Total Cells Counted 100 Neutrophils % (Manual) 46 % (45-75) Pending Lymphocytes % (Manual) 20 % (20-45) Pending Monocytes % (Manual) 23 % (1-10) H Eosinophils % (Manual) 8 % (0-3) H Basophils % (Manual) 3 % (0-2) H Band Neutrophils 0 % (0-8) Platelet Estimate Adequate Pending Platelet Morphology Normal Pending Hypochromasia 1+ Anisocytosis 1+ Sodium Level 140 MMOL/L (136-145) 143 MMOL/L (136-145) Potassium Level 3.5 MMOL/L (3.5-5.1) 4.0 MMOL/L (3.5-5.1) Chloride Level 109 MMOL/L (98-107) H 113 MMOL/L (98-107) H Carbon Dioxide Level 23 MMOL/L (21-32) 25 MMOL/L (21-32) Anion Gap 8 mmol/L (5-15) 5 mmol/L (5-15) Blood Urea Nitrogen 8 mg/dL (7-18) 7 mg/dL (7-18) Creatinine 0.8 MG/DL (0.55-1.30) 0.8 MG/DL (0.55-1.30) Estimat Glomerular Filtration Rate > 60 mL/min (>60) > 60 mL/min (>60) Glucose Level 97 MG/DL (74-106) 98 MG/DL (74-106) Calcium Level 8.6 MG/DL (8.5-10.1) 8.0 MG/DL (8.5-10.1) L Magnesium Level 1.4 MG/DL (1.8-2.4) L 1.7 MG/DL (1.8-2.4) L Phosphorus Level 3.3 MG/DL (2.5-4.9) Current Medications Medications (Trade) Dose Ordered Sig/Chon Route PRN Reason Start Time Stop Time Status Last Admin Dose Admin Acetaminophen (Tylenol) 650 mg Q4H PRN ORAL Pain Scale (3-5) 12/20/20 11:30 01/19/21 11:29 12/25/20 00:38 Aluminum Hydroxide (Amphojel) 960 mg Q6H PRN ORAL Abdominal cramps 12/23/20 22:15 01/22/21 22:14 12/23/20 22:48 Amoxicillin/ Clavulanate Potassium (Augmentin) 875 mg EVERY 12 HOURS ORAL 12/22/20 21:00 12/29/20 20:59 12/24/20 21:32 Chlorhexidine Gluconate (Cyndi-Hex 2%) 1 applic DAILY@2000 TOPIC 12/21/20 20:00 03/21/21 19:59 12/24/20 20:00 Dextrose/Sodium Chloride 1,000 ml @ 75 mls/hr [id number] IV 12/21/20 06:00 01/20/21 05:59 12/25/20 03:20 Diphenhydramine HCl (Benadryl) 25 mg Q6H PRN ORAL Itching 12/21/20 01:30 01/20/21 01:29 12/21/20 03:26 Hydromorphone HCl (Dilaudid) 2 mg Q8H PRN ORAL pain prior to dressing change 12/20/20 21:15 12/27/20 21:14 12/24/20 17:38 Magnesium Sulfate 100 ml @ 100 mls/hr Q1H IVPB 12/25/20 10:00 12/25/20 12:59 Ondansetron HCl (Zofran) 4 mg Q4H PRN IVP Nausea & Vomiting 12/20/20 21:15 01/19/21 21:14 12/24/20 09:14 Sterlign Montiel MD Dec 25, 2020 10:07
--- NOTE | 2020-12-25 10:18 | Internal Med Progress Note ---
Subjective Physician Name Aaron Willis Attending Physician Aaron Willis M.D. Current Medications Medications (Trade) Dose Ordered Sig/Chon Route PRN Reason Start Time Stop Time Status Last Admin Dose Admin Acetaminophen (Tylenol) 650 mg Q4H PRN ORAL Pain Scale (3-5) 12/20/20 11:30 01/19/21 11:29 12/25/20 00:38 Aluminum Hydroxide (Amphojel) 960 mg Q6H PRN ORAL Abdominal cramps 12/23/20 22:15 01/22/21 22:14 12/23/20 22:48 Chlorhexidine Gluconate (Cyndi-Hex 2%) 1 applic DAILY@2000 TOPIC 12/21/20 20:00 03/21/21 19:59 12/24/20 20:00 Dextrose/Sodium Chloride 1,000 ml @ 75 mls/hr [id number] IV 12/21/20 06:00 01/20/21 05:59 12/25/20 10:13 Diphenhydramine HCl (Benadryl) 25 mg Q6H PRN ORAL Itching 12/21/20 01:30 01/20/21 01:29 12/21/20 03:26 Hydromorphone HCl (Dilaudid) 2 mg Q8H PRN ORAL pain prior to dressing change 12/20/20 21:15 12/27/20 21:14 12/24/20 17:38 Magnesium Sulfate 100 ml @ 100 mls/hr Q1H IVPB 12/25/20 10:00 12/25/20 12:59 12/25/20 10:06 Ondansetron HCl (Zofran) 4 mg Q4H PRN IVP Nausea & Vomiting 12/20/20 21:15 01/19/21 21:14 12/24/20 09:14 Allergies: Coded Allergies: ERYTHROMYCIN BASE (Verified Allergy, Unknown, 12/20/20) LATEX, NATURAL RUBBER (Verified Allergy, Unknown, 12/20/20) ROS Limited/Unobtainable: No Constitutional: Reports: weakness HEENT: Denies: no symptoms, eye pain, blurred vision, tearing, double vision, ear pain, ear discharge, nose pain, nose congestion, throat pain, throat swelling, mouth pain, mouth swelling, other Cardiovascular: Denies: no symptoms, chest pain, edema, irregular heart rate, lightheadedness, palpitations, syncope, other Respiratory: Denies: no symptoms, cough, orthopnea, shortness of breath, SOB with excertion, SOB at rest, sputum, stridor, wheezing, other Gastrointestinal/Abdominal: Denies: no symptoms, abdomen distended, abdominal pain, black stools, tarry stools, blood in stool, constipated, diarrhea, difficulty swallowing, nausea, poor appetite, poor fluid intake, rectal bleeding, vomiting, other Genitourinary: Denies: no symptoms, burning, discharge, frequency, flank pain, hematuria, incontinence, pain, urgency, other Neurologic/Psychiatric: Denies: no symptoms, anxiety, depressed, emotional problems, headache, numbness, paresthesia, pre-existing deficit, seizure, tingling, tremors, weakness, other Subjective hemoglobin stable + rectal bleeding FOB ordered GI consulted Rhino Rocket removed with no bleeding will monitor Objective Last Vital Signs Date Time Temp Pulse Resp B/P (MAP) Pulse Ox O2 Delivery O2 Flow Rate FiO2 12/25/20 04:00 88 12/25/20 04:00 97.7 20 109/53 (71) 98 12/24/20 21:00 Room Air Laboratory Tests Test 12/24/20 11:00 12/25/20 06:30 12/25/20 08:38 White Blood Count 4.2 K/UL (4.8-10.8) L 3.9 K/UL (4.8-10.8) L Red Blood Count 3.78 M/UL (4.20-5.40) L 3.59 M/UL (4.20-5.40) L Hemoglobin 9.9 G/DL (12.0-16.0) L 9.6 G/DL (12.0-16.0) L Hematocrit 33.1 % (37.0-47.0) L 31.2 % (37.0-47.0) L Mean Corpuscular Volume 87 FL (80-99) 87 FL (80-99) Mean Corpuscular Hemoglobin 26.3 PG (27.0-31.0) L 26.7 PG (27.0-31.0) L Mean Corpuscular Hemoglobin Concent 30.1 G/DL (32.0-36.0) L 30.7 G/DL (32.0-36.0) L Red Cell Distribution Width 19.8 % (11.6-14.8) H 19.8 % (11.6-14.8) H Platelet Count 317 K/UL (150-450) 313 K/UL (150-450) Mean Platelet Volume 6.0 FL (6.5-10.1) L 6.5 FL (6.5-10.1) Neutrophils (%) (Auto) % (45.0-75.0) % (45.0-75.0) Lymphocytes (%) (Auto) % (20.0-45.0) % (20.0-45.0) Monocytes (%) (Auto) % (1.0-10.0) % (1.0-10.0) Eosinophils (%) (Auto) % (0.0-3.0) % (0.0-3.0) Basophils (%) (Auto) % (0.0-2.0) % (0.0-2.0) Differential Total Cells Counted 100 Neutrophils % (Manual) 46 % (45-75) Pending Lymphocytes % (Manual) 20 % (20-45) Pending Monocytes % (Manual) 23 % (1-10) H Eosinophils % (Manual) 8 % (0-3) H Basophils % (Manual) 3 % (0-2) H Band Neutrophils 0 % (0-8) Platelet Estimate Adequate Pending Platelet Morphology Normal Pending Hypochromasia 1+ Anisocytosis 1+ Sodium Level 140 MMOL/L (136-145) 143 MMOL/L (136-145) Potassium Level 3.5 MMOL/L (3.5-5.1) 4.0 MMOL/L (3.5-5.1) Chloride Level 109 MMOL/L (98-107) H 113 MMOL/L (98-107) H Carbon Dioxide Level 23 MMOL/L (21-32) 25 MMOL/L (21-32) Anion Gap 8 mmol/L (5-15) 5 mmol/L (5-15) Blood Urea Nitrogen 8 mg/dL (7-18) 7 mg/dL (7-18) Creatinine 0.8 MG/DL (0.55-1.30) 0.8 MG/DL (0.55-1.30) Estimat Glomerular Filtration Rate > 60 mL/min (>60) > 60 mL/min (>60) Glucose Level 97 MG/DL (74-106) 98 MG/DL (74-106) Calcium Level 8.6 MG/DL (8.5-10.1) 8.0 MG/DL (8.5-10.1) L Magnesium Level 1.4 MG/DL (1.8-2.4) L 1.7 MG/DL (1.8-2.4) L Phosphorus Level 3.3 MG/DL (2.5-4.9) Intake and Output 12/24/20 12/25/20 18:59 06:59 Intake Total 690 ml 300 ml Balance 690 ml 300 ml Intake Oral 690 ml 300 ml # Voids 5 3 Assessment/Plan Assessment/Plan #epistaxis #acute anemia #HTN #HLD #DVT on lovenox - hold lovenox - prbc transfusion - monitor hemoglobin - surgery consulted - monitor vitals Aaron Willis M.D. Dec 25, 2020 10:18
--- NOTE | 2020-12-25 11:18 | Surgery Progress Note ---
Surgery Progress Note Subjective Symptoms: improved, pain absent, tolerating diet, voiding well, passing flatus, BM Additional Comments no bleeding Objective Last 24 Hour Vital Signs Date Time Temp Pulse Resp B/P (MAP) Pulse Ox O2 Delivery O2 Flow Rate FiO2 12/25/20 04:00 88 12/25/20 04:00 97.7 85 20 109/53 (71) 98 12/25/20 00:00 97.7 91 20 107/65 (79) 98 12/24/20 21:00 Room Air 12/24/20 20:00 101 12/24/20 20:00 97.4 106 20 120/71 (87) 98 12/24/20 16:00 99.0 108 18 112/70 (84) 98 12/24/20 16:00 100 12/24/20 12:00 108 12/24/20 12:00 99.2 99 20 115/69 (84) 96 I&O Intake and Output 12/24/20 12/25/20 19:00 07:00 Intake Total 690 ml 300 ml Balance 690 ml 300 ml Intake Oral 690 ml 300 ml # Voids 5 3 Dressing: dry Wound: clean Cardiovascular: RSR Respiratory: clear Abdomen: soft, flat, non-tender, present bowel sounds Extremities: no edema, no tenderness, no cyanosis Laboratory Tests Test 12/25/20 06:30 12/25/20 08:38 White Blood Count 3.9 K/UL (4.8-10.8) L Red Blood Count 3.59 M/UL (4.20-5.40) L Hemoglobin 9.6 G/DL (12.0-16.0) L Hematocrit 31.2 % (37.0-47.0) L Mean Corpuscular Volume 87 FL (80-99) Mean Corpuscular Hemoglobin 26.7 PG (27.0-31.0) L Mean Corpuscular Hemoglobin Concent 30.7 G/DL (32.0-36.0) L Red Cell Distribution Width 19.8 % (11.6-14.8) H Platelet Count 313 K/UL (150-450) Mean Platelet Volume 6.5 FL (6.5-10.1) Neutrophils (%) (Auto) % (45.0-75.0) Lymphocytes (%) (Auto) % (20.0-45.0) Monocytes (%) (Auto) % (1.0-10.0) Eosinophils (%) (Auto) % (0.0-3.0) Basophils (%) (Auto) % (0.0-2.0) Differential Total Cells Counted 100 Neutrophils % (Manual) 49 % (45-75) Lymphocytes % (Manual) 12 % (20-45) L Monocytes % (Manual) 22 % (1-10) H Eosinophils % (Manual) 15 % (0-3) H Basophils % (Manual) 0 % (0-2) Band Neutrophils 2 % (0-8) Platelet Estimate Adequate Platelet Morphology Normal Hypochromasia 1+ Anisocytosis 2+ Sodium Level 143 MMOL/L (136-145) Potassium Level 4.0 MMOL/L (3.5-5.1) Chloride Level 113 MMOL/L (98-107) H Carbon Dioxide Level 25 MMOL/L (21-32) Anion Gap 5 mmol/L (5-15) Blood Urea Nitrogen 7 mg/dL (7-18) Creatinine 0.8 MG/DL (0.55-1.30) Estimat Glomerular Filtration Rate > 60 mL/min (>60) Glucose Level 98 MG/DL (74-106) Calcium Level 8.0 MG/DL (8.5-10.1) L Magnesium Level 1.7 MG/DL (1.8-2.4) L Phosphorus Level 3.3 MG/DL (2.5-4.9) Plan Problems: (1) Anemia (2) Posterior epistaxis (3) Severe epistaxis Assessment & Plan: 55-year-old female with recent epi taxis. States she is been receiving Lovenox. Identified last night to have severe bleeding from the left nostril. Came in for evaluation. Rhino Rocket initially placed with still some bleeding. Patient was seen at the bedside in the emergency department. Rhino Rocket evaluated pushed and further both balloons insufflated hemostasis obtained patient states no posteriorly leak. No bleeding noted at this time. Admit for further monitoring. Hold anticoagulation. Will follow with recommendations. Thank you for letting participate patient's care ENT eval No acute events currently not bleeding anymore hemostasis obtained seemingly. Labs stable respond to transfusions. Given patient's history medications and condition will hold on removal of nasal packing for at least the next 24 hours to continuously monitor. Trend labs. Will follow with recommendations thank you Anna Gillis removed no bleeding monitor for 24 hours H&H stable no bleeding okay to discharge hold anticoagulation okay to d/c no bleeding over 24hr Candelario Monzon Dec 25, 2020 11:18
[2020-12-25 12:00] VITALS: BP 98/65
--- NOTE | 2020-12-25 12:12 | General Progress Note ---
Subjective ROS Limited/Unobtainable: Yes Allergies: Coded Allergies: ERYTHROMYCIN BASE (Verified Allergy, Unknown, 12/20/20) LATEX, NATURAL RUBBER (Verified Allergy, Unknown, 12/20/20) Objective Last 24 Hour Vital Signs Date Time Temp Pulse Resp B/P (MAP) Pulse Ox O2 Delivery O2 Flow Rate FiO2 12/25/20 04:00 88 12/25/20 04:00 97.7 85 20 109/53 (71) 98 12/25/20 00:00 97.7 91 20 107/65 (79) 98 12/24/20 21:00 Room Air 12/24/20 20:00 101 12/24/20 20:00 97.4 106 20 120/71 (87) 98 12/24/20 16:00 99.0 108 18 112/70 (84) 98 12/24/20 16:00 100 Intake and Output 12/24/20 12/25/20 19:00 07:00 Intake Total 690 ml 300 ml Balance 690 ml 300 ml Intake Oral 690 ml 300 ml # Voids 5 3 Laboratory Tests 12/25/20 06:30: White Blood Count 3.9L, Red Blood Count 3.59L, Hemoglobin 9.6L, Hematocrit 31.2L , Mean Corpuscular Volume 87, Mean Corpuscular Hemoglobin 26.7L, Mean Corpuscular Hemoglobin Concent 30.7L, Red Cell Distribution Width 19.8H, Platelet Count 313, Mean Platelet Volume 6.5, Neutrophils (%) (Auto) , Lymphocytes (%) (Auto) , Monocytes (%) (Auto) , Eosinophils (%) (Auto) , Basophils (%) (Auto) , Differential Total Cells Counted 100, Neutrophils % (Manual) 49, Lymphocytes % (Manual) 12L, Monocytes % (Manual) 22H, Eosinophils % (Manual) 15H, Basophils % (Manual) 0, Band Neutrophils 2, Platelet Estimate Adequate, Platelet Morphology Normal, Hypochromasia 1+, Anisocytosis 2+, Sodium Level 143, Potassium Level 4.0, Chloride Level 113H, Carbon Dioxide Level 25, Anion Gap 5, Blood Urea Nitrogen 7, Creatinine 0.8, Estimat Glomerular Filtration Rate > 60, Glucose Level 98, Calcium Level 8.0L, Magnesium Level 1.7L 12/25/20 08:38: Phosphorus Level 3.3 Height (Feet): 5 Height (Inches): 5.00 Weight (Pounds): 230 General Appearance: no apparent distress EENT: normal ENT inspection Neck: supple Cardiovascular: normal rate Respiratory/Chest: decreased breath sounds Abdomen: normal bowel sounds, non tender, soft Extremities: non-tender Assessment/Plan Problem List: (1) Severe epistaxis ICD Codes: R04.0 - Epistaxis SNOMED: 628718762 (2) Anemia ICD Codes: D64.9 - Anemia, unspecified SNOMED: 413765472 Assessment/Plan: stool ob positive most likely from the nose bleed will hold EGd for now will Wilfrid Hoang MD Dec 25, 2020 12:12
--- NOTE | 2020-12-25 13:50 | NUR ---
NURSE NOTES:WOUND CARE FOLLOW-UP NOTES:Pt seen at bedside for wound care. Primary nurse in attendance and pt was premedicated for pain prior to wound care. Moderate amt serosanguineous exudate noted to both drsgs R and L lower extremities. Soiled drsgs removed with attention and care to pt's comfort. Alginate and adaptic gauzes were moistened prior to removal to minimize discomfort. Both lower extremities washed. Xerotic areas around wounds moisturized with Lotion. Full thickness Ulcer with Irregular borders Distal L lower extremity is beefy red with areas of tendon exposure. Mild odor noted. Edges are less macerated in comparison to previous assessment. Wound is also less malodorous in comparison to initial assessment. Full Thickness Ulcer with Irregular Borders Distal R lower extremity is beefy red with small area of tendon exposure. Edges are less macerated in comparison with initial assessment. wound is less malodorous in comparison to initial wound assessment. Wound Tx provided as ordered. Both lower extremities elevated on pillows. Pt tolerated procedure with minimal discomfort.
--- NOTE | 2020-12-25 15:10 | NUR ---
*-*DISCHARGE PLANNED*-* PATIENT HAS BEEN ACCEPTED AND WILL BE DISCHARGED BACK TO: [facility] P: [phone] FOR NURSE TO NURSE REPORT ROOM# 9.[facility] SET FOR 4:30PM S/W [facility] [id number].
--- NOTE | 2020-12-25 15:45 | NUR ---
NURSE NOTES: pt. was DC in stable condition, via ambulance. Picc line and Iv line was DC, pt was not bleeding site was covered with 4x4. classroom monitor was taken off, pt has no signs of cardiac or respiratory distress at this time. reviewed DC instructions with pt and she verbalized understanding. pt had no belonging.
[2020-12-25 16:00] VITALS: BP 110/68
--- NOTE | 2020-12-26 13:16 | Discharge Summary ---
Discharge Summary Discharge Summary _ Date of admission: 12/20/2020 Date of discharge: 12/25/[address] Willis History of Present Illness and Brief Hospital Course Ms. Ward is a 55-year-old female who presented from SNF for evaluation of epistaxis. Patient was noted to be in care home temporarily to treat her cellulitis. Patient also had a history of DVT and was on Lovenox at the care home. She was found to be actively bleeding from the left nare. Her left naris was packed with a 9 cm posterior rapid Rhino and 5 cc of air was inflated in the posterior and anterior chambers. [facility] was contacted for possible transfer for ENT coverage. However, patient was declined to be transferred and patient was admitted to [facility] for further management of anemia, and tachycardia. Her Lovenox was held given new onset epistaxis. She was transfused with PRBC. Her H&H improved and remained stable. Her nasal packing was eventually removed and hemostasis was obtained. Patient was medically stable for discharge and was discharged back to her facility on 12/25/2020. Consultants: Infectious disease Dr. Montiel Surgery Dr. Monzon Gastroenterology Dr. Connell Discharge Condition Improved and stable Final diagnoses Sepsis or systemic inflammatory syndrome Posterior epistaxis Sinusitis Severe anemia, s/p transfusion Morbid obesity Hepatic steatosis Staff aureus bacteremia Hypomagnesemia hypertension Hyperlipidemia History of DVT I have been assigned to dictate discharge summary for this account. I was not involved in the patient's management John Olivera Dec 26, 2020 13:16
== END 2020-12-25 17:00 | DRG 115 ==
LOC: EDBD 00:46 → EMR 01:37 → 2E 03:16 → EDBEDREQ 18:01 → 2E 12-23 16:19
PROC: 30233N1 Transfusion of Nonautologous Red Blood Cells into Peripheral Vein, Percutaneous Approach (ICD-10-PCS; principal; 2020-12-20)
PROC: 2Y41X5Z Packing of Nasal Region using Packing Material (ICD-10-PCS; 2020-12-20)
DX: R04.0 Epistaxis (principal); A41.9 Sepsis, unspecified organism; D64.9 Anemia, unspecified; I10 Essential (primary) hypertension; E66.01 Morbid (severe) obesity due to excess calories; Z68.38 Body mass index [BMI] 38.0-38.9, adult; J32.9 Chronic sinusitis, unspecified; K76.0 Fatty (change of) liver, not elsewhere classified; Z88.1 Allergy status to other antibiotic agents; Z91.040 Latex allergy status; Z86.718 Personal history of other venous thrombosis and embolism; Z79.01 Long term (current) use of anticoagulants; E78.5 Hyperlipidemia, unspecified; E83.42 Hypomagnesemia
CPT/HCPCS: 30901; 36415; 74177; 80048; 80053; 80307; 82270; 83735; 84100; 85007; 85025; 85610; 85730; 86850; 86900; 86901; 86920; 87081; 93005; 96360; 99285; J2405; J7030